=== PATIENT | male | born 1975 | race African-American/Black ===

== ENCOUNTER 2017-07-05 02:04 | Emergency (ER) | payer SELFPAY ==
--- NOTE | 2017-07-05 02:14 | PDOC ---
History of Present Illness - History of Present Illness Initial Comments: 41 year old male with PMH of remote heroin use, cocaine abuse, and EtOH use presenting with nausea, vomiting, abdominal pain, and chest pain for the past few hours. States that he started to have a "strange feeling in my stomach" after work around 22:00 and then began to vomit at home. Afte 3-4 episodes of vomiting he began to experience abdominal pain and chest pain. States he used cocaine two days prior but denies any other drug use. Denies fevers, chills, diarrhea, constipation, or other symptoms. 07/05/17 02:24 <Michelle Wang - Last Filed: 07/05/17 05:51> <Vance Meza - Last Filed: 07/05/17 08:14> - General Stated Complaint: VOMITING Time Seen by Provider: 07/05/17 02:14 Past History - Suicide/Smoking/Psychosocial Hx Smoking History: Current some day smoker Have you smoked in the past 12 months: No Number of Cigarettes Smoked Daily: 5 Hx Alcohol Use: Yes (2 BEERS) Drug/Substance Use Hx: Yes (COCAINE) Substance Use Type: None <Michelle Wang - Last Filed: 07/05/17 05:51> <Vance Meza - Last Filed: 07/05/17 08:14> - Past Medical History Allergies/Adverse Reactions: Allergies Allergy/AdvReac Type Severity Reaction Status Date / Time shellfish derived Allergy Verified 07/05/17 02:24 Home Medications: Ambulatory Orders Methadone [Dolophine -] 105 mg PO DAILY 01/27/14 Review of Systems - Review of Systems Constitutional: No: Chills, Diaphoresis, Fever HEENTM: No: Blurred Vision, Recent change in vision, Double Vision Respiratory: No: Cough, Orthopnea, Shortness of Breath Cardiac (ROS): No: Chest Pain ABD/GI: Yes: Nausea, Poor Appetite. No: Constipated, Diarrhea : No: Dysuria, Discharge, Frequency Musculoskeletal: No: Joint Pain, Joint Swelling Integumentary: No: Bruising, Lesions, Lumps, Pallor Neurological: No: Headache, Numbness Psychiatric: Yes: Other (substance abuse) <Michelle Wang - Last Filed: 07/05/17 05:51> *Physical Exam - Physical Exam General Appearance: Yes: Nourished, Appropriately Dressed, Apparent Distress, Moderate Distress HEENT: positive: EOMI, ARNEL, Normal ENT Inspection, Normal Voice Neck: positive: Trachea midline, Normal Thyroid, Supple. negative: Tender, Rigid Respiratory/Chest: positive: Lungs Clear, Normal Breath Sounds. negative: Chest Tender, Respiratory Distress Cardiovascular: positive: Regular Rhythm, Regular Rate Gastrointestinal/Abdominal: positive: Normal Bowel Sounds, Tender (Diffusely tender but eventually localizd to periumbilical region), Soft, Distended. negative: Flat Musculoskeletal: positive: Normal Inspection. negative: CVA Tenderness Extremity: positive: Normal Capillary Refill, Normal Inspection, Normal Range of Motion. 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 NML intact, Fully Oriented, Alert, Normal Mood/ Affect, Normal Response, Motor Strength 5/5 <Michelle Wang - Last Filed: 07/05/17 05:51> - Vital Signs Last Vital Signs Temp Pulse Resp BP Pulse Ox 98.4 F 76 14 140/76 96 07/05/17 06:52 07/05/17 06:52 07/05/17 06:52 07/05/17 06:52 07/05/17 06:52 <Vance Meza - Last Filed: 07/05/17 08:14> ED Treatment Course - LABORATORY CBC & Chemistry Diagram: 07/05/17 02:45 07/05/17 02:45 <Michelle Wang - Last Filed: 07/05/17 05:51> - LABORATORY CBC & Chemistry Diagram: 07/05/17 02:45 07/05/17 02:45 - ADDITIONAL ORDERS Additional order review: Laboratory Results 07/05/17 07/05/17 07/05/17 05:21 03:35 03:35 VBG pH POC VBG pCO2 POC VBG pO2 Mixed VBG HCO3 Sodium Potassium Chloride Carbon Dioxide Anion Gap BUN Creatinine Creat Clearance w eGFR Random Glucose Lactic Acid Calcium Total Bilirubin Direct Bilirubin AST ALT Alkaline Phosphatase Creatine Kinase Troponin I Total Protein Albumin Lipase 54 L Urine Color Yellow Urine Appearance Clear Urine pH 7.0 Ur Specific [place] 1.016 Urine Protein 1+ H Urine Glucose (UA) Negative Urine Ketones Negative Urine Blood Negative Urine Nitrite Negative Urine Bilirubin Negative Urine Urobilinogen Negative Ur Leukocyte Esterase Trace Urine WBC (Auto) 1 Urine RBC (Auto) <1 Ur Epithelial Cells Rare Hyaline Casts 17 Opiates Screen Negative Methadone Screen Positive Barbiturate Screen Negative Phencyclidine Screen Negative Ur Amphetamines Screen Negative MDMA (Ecstasy) Screen Negative Benzodiazepines Screen Negative Cocaine Screen Positive U Marijuana (THC) Screen Negative 07/05/17 07/05/17 07/05/17 02:56 02:45 02:45 VBG pH 7.36 POC VBG pCO2 51.3 POC VBG pO2 40.2 Mixed VBG HCO3 28.5 H Sodium 140 Potassium 3.9 Chloride 103 Carbon Dioxide 29 Anion Gap 8 BUN 8 D Creatinine 0.9 D Creat Clearance w eGFR > 60 Random Glucose 121 H D Lactic Acid 2.9 H* Calcium 9.2 Total Bilirubin 0.4 D Direct Bilirubin < 0.2 AST 35 D ALT 59 D Alkaline Phosphatase 136 H Creatine Kinase 222 Troponin I < 0.02 Total Protein 8.1 Albumin 3.9 Lipase Urine Color Urine Appearance Urine pH Ur Specific [place] Urine Protein Urine Glucose (UA) Urine Ketones Urine Blood Urine Nitrite Urine Bilirubin Urine Urobilinogen Ur Leukocyte Esterase Urine WBC (Auto) Urine RBC (Auto) Ur Epithelial Cells Hyaline Casts Opiates Screen Methadone Screen Barbiturate Screen Phencyclidine Screen Ur Amphetamines Screen MDMA (Ecstasy) Screen Benzodiazepines Screen Cocaine Screen U Marijuana (THC) Screen 07/05/17 02:45 RBC 4.59 MCV 86.2 MCHC 34.5 RDW 13.8 MPV 8.5 Neutrophils % 69.7 Lymphocytes % 20.8 D Monocytes % 7.9 Eosinophils % 1.1 Basophils % 0.5 - Medications Given in the ED: ED Medications Discontinued Medications Generic Name Dose Route Start Last Admin Trade Name Freq PRN Reason Stop Dose Admin Al Hydroxide/Mg Hydroxide 30 ml 07/05/17 02:18 07/05/17 02:48 Mylanta Oral Suspension - PO 07/05/17 02:19 30 ml ONCE ONE Administration Sodium Chloride 1,000 mls @ 1,000 mls/hr 07/05/17 03:36 07/05/17 03:42 Normal Saline - IV 07/05/17 04:35 1,000 mls/hr ASDIR STA Administration Ketorolac Tromethamine 30 mg 07/05/17 05:47 07/05/17 05:49 Toradol Injection - IVPUSH 07/05/17 05:48 30 mg ONCE ONE Administration Ondansetron HCl 4 mg 07/05/17 02:18 07/05/17 02:50 Zofran Injection IVPUSH 07/05/17 02:19 4 mg ONCE ONE Administration Sodium Chloride 1,000 ml 07/05/17 02:18 07/05/17 02:50 Normal Saline - IV 07/05/17 02:19 1,000 ml ONCE ONE Administration <Vance Meza - Last Filed: 07/05/17 08:14> Medical Decision Making - Medical Decision Making 41 year old male with PMH of substance abuse, currently on methadone presenting with sudden onset vomiting that eventually led to abdominal pain. Vitals stable throughout course and afebrile. Small WBC elevation with lactate elevation to 2.9 which could be explained by vomiting/ recent cocaine use. CT scan negative for pathology and patient's abdominal pain improved with Maalox and Zofran. He remained galo free for three hours then awoke complaining of pain again so he was given Toradol 30 IV which caused completely 07/05/17 05:58 <Michelle Wang - Last Filed: 07/05/17 05:51> *DC/Admit/Observation/Transfer <Michelle Wang - Last Filed: 07/05/17 05:51> - Discharge Dispostion Admit: No <Vance Meza - Last Filed: 07/05/17 08:14> Diagnosis at time of Disposition: Nausea, Hepatic steatosis Abdominal pain Qualifiers: Abdominal location: unspecified location Qualified Code(s): R10.9 - Unspecified abdominal pain Inguinal hernia Qualifiers: Obstruction and gangrene presence: without obstruction or gangrene Laterality: unspecified laterality Recurrence: not specified as recurrent Qualified Code(s) : K40.90 - Unilateral inguinal hernia, without obstruction or gangrene, not specified as recurrent - Discharge Dispostion Disposition: HOME Condition at time of disposition: Good - Referrals Referrals: Bertram Barrera MD [Staff Physician] - - Patient Instructions Printed Discharge Instructions: DI for Abdominal Pain-Adult Additional Instructions: Please return to the ER if you experience concerning or worsening symptoms including worsening abdominal pain, vomiting, or fevers. Please keep your diet limited to Banana, Apple Sauce, and [place] for the next few days to help manage your symptoms. It is important that you call to schedule a follow up appointment with your primary care provider within 2-3 days to discuss your ER visit and further management of your symptoms.
[2017-07-05] MEDS ORDERED: MAG HYDROX/AL HYDROX/SIMETH 30 ML UNIT-DOSE CUP PO ONE (02:18)
[2017-07-05] MEDS ORDERED: ONDANSETRON 4 MG/2 ML VIAL IVPUSH ONE (02:18)
[2017-07-05] MEDS ORDERED: SODIUM CHLORIDE 0.9% 500 ML INFUS.BAG IV ONE (02:18)
[2017-07-05 02:24] VITALS: BMI 37.5
--- NOTE | 2017-07-05 02:39 | PDOC ---
Attending Attestation - Resident Resident Name: Michelle Wang - ED Attending Attestation I have performed the following: I have examined & evaluated the patient, The case was reviewed & discussed with the resident, I agree w/resident's findings & plan - HPI HPI: 07/05/17 02:39 Pt comes with vomiting after cocaine use. - Physicial Exam PE: 07/05/17 02:39 Agree with resident exam - Medical Decision Making 07/05/17 05:50 Pt comes with vomiting and feeling unwell. He receives methadone and uses cocaine. Pt has no fever or chills. States that he has abd pain. No dysuria. Pt has a CT scan that shows fatty liver and fat in his hernias. Normal appy and rest of CT is normal. Pt will be discharged home. 07/05/17 06:16 Patient Name: PHILIP MAE THIS IS A PRELIMINARY REPORT FROM [facility] DATE OF SERVICE: 2017-07-05 04:54:57 IMAGES: [id number] EXAM: CT abdomen and pelvis with contrast HISTORY: Rule out appendicitis COMPARISON: None FINDINGS: Basilar dependent atelectasis is noted. The visualized cardiac chambers are normal size and configuration. The liver is fatty. Normal gallbladder, pancreas, spleen , adrenal glands and kidneys. The stomach and abdominal small and large bowel are normal. There is no aortic aneurysm. There is no significant retroperitoneal lymphadenopathy. The pelvic small and large bowel are normal. The appendix is normal. The urinary bladder and prostate gland are normal. No pelvic free fluid is identified. There is no significant pelvic lymphadenopathy. Small fat containing bilateral inguinal hernias noted. IMPRESSION: Fatty liver. No evidence of acute pathology. THIS DOCUMENT HAS BEEN ELECTRONICALLY SIGNED 07/05/17 06:39 Pt hydrated. Labs normal except for elevated lactate. We will repeat and if normal or decreasing he will go home.
[2017-07-05] MEDS ORDERED: MAG HYDROX/AL HYDROX/SIMETH 30 ML UNIT-DOSE CUP ONE (02:48)
[2017-07-05 02:59] LABS: BASO % 0.5 % (0-2.0); EOS % 1.1 % (0-4.5); HEMATOCRIT 39.6 % (35.4-49); HEMOGLOBIN 13.6 GM/dL (11.7-16.9); LYMPH % 20.8 % (8-40); MCH 29.7 pg (25.7-33.7); MCHC 34.5 g/dl (32.0-35.9); MEAN CELL VOLUME 86.2 fl (80-96); MEAN PLT VOLUME 8.5 fl (7.5-11.1); MONO % 7.9 % (3.8-10.2); NEUT % 69.7 % (42.8-82.8); PLATELET COUNT 265 K/MM3 (134-434); RBC 4.59 M/mm3 (4.00-5.60); RDW 13.8 % (11.9-15.9); WHITE BLOOD COUNT 12.6 K/mm3 (4.0-10.0)
[2017-07-05 03:26] LABS: ALBUMIN 3.9 g/dl (3.4-5.0); ANION GAP 8 (8-16); BILIRUBIN,DIRECT < 0.2 mg/dL (0.0-0.2); BILIRUBIN,TOTAL 0.4 mg/dL (0.2-1.0); BLOOD UREA NITROGEN 8 mg/dL (7-18); CALCIUM 9.2 mg/dL (8.5-10.1); CHLORIDE 103 mmol/L (98-107); CO2 29 mmol/L (21-32); CREATININE 0.9 mg/dL (0.7-1.3); GLUCOSE,RANDOM 121 mg/dL (74-106); POTASSIUM 3.9 mmol/L (3.5-5.1); SGOT/AST 35 U/L (15-37); SGPT/ALT 59 U/L (12-78); SODIUM 140 mmol/L (136-145); TOT PROT 8.1 g/dl (6.4-8.2)
[2017-07-05] MEDS ORDERED: SODIUM CHLORIDE 1,000 ML IV STA (03:36)
[2017-07-05 03:40] LABS: VENOUS PC02 51.3 mmHg (38-52); VENOUS PH 7.36 (7.32-7.42)
[2017-07-05 03:40] LABS: ALK PHOS 136 U/L (45-117)
[2017-07-05 03:41] LABS: VENOUS PO2 40.2 mmHg (28-48)
[2017-07-05 03:53] LABS: URINE APPEARANCE CLEAR; URINE BILIRUBIN NEGATIVE (<2.0 mg/dL); URINE COLOR YELLOW; URINE GLUCOSE (UA) NEGATIVE (NEGATIVE); URINE KETONE NEGATIVE (NEGATIVE); URINE LEUK ESTERASE TRACE (NEGATIVE); URINE NITRITE NEGATIVE (NEGATIVE); URINE UROBILINOGEN NEGATIVE mg/dL (0.2-1.0)
[2017-07-05 03:57] LABS: URINE PROTEIN 1+ (NEGATIVE)
[2017-07-05 03:59] LABS: EPI CELLS RARE /HPF (FEW); URINE HYALINE CAST 17 /lpf
[2017-07-05 04:12] LABS: OPIATES, URI NEGATIVE ng/ml (CUTOFF=300); PHENCYCLIDINE,URINE NEGATIVE ng/ml (CUTOFF=25); URINE AMPHETAMINES NEGATIVE ng/ml (CUTOFF=500); URINE BARBITURATES NEGATIVE ng/ml (CUTOFF=200); URINE BENZODIAZEPINES NEGATIVE ng/ml (CUTOFF=200)
[2017-07-05 04:13] LABS: COCAINE, UR POSITIVE ng/ml (CUTOFF=300); METHADONE, UR POSITIVE ng/ml (CUTOFF=300)
[2017-07-05] MEDS ORDERED: KETOROLAC TROMETHAMINE 30 MG/1 ML VIAL IVPUSH ONE (05:47)
[2017-07-05] MEDS ORDERED: KETOROLAC TROMETHAMINE 30 MG/1 ML VIAL ONE (06:02)
--- NOTE | 2017-07-05 08:14 | PDOC ---
*Physical Exam - Vital Signs Last Vital Signs Temp Pulse Resp BP Pulse Ox 98.4 F 76 14 140/76 97 07/05/17 06:52 07/05/17 06:52 07/05/17 06:52 07/05/17 06:52 07/05/17 07:52 - Physical Exam Comments: 07/05/17 08:11 Gen: aaox3, nad heart: +s1s2 reg Lungs: cta b/l Abd: soft, nt/nd +bs ext: no c/c/e ED Treatment Course - LABORATORY CBC & Chemistry Diagram: 07/05/17 02:45 07/05/17 02:45 - ADDITIONAL ORDERS Additional order review: Laboratory Results 07/05/17 07/05/17 07/05/17 06:03 05:21 03:35 VBG pH POC VBG pCO2 POC VBG pO2 Mixed VBG HCO3 Sodium Potassium Chloride Carbon Dioxide Anion Gap BUN Creatinine Creat Clearance w eGFR Random Glucose Lactic Acid 1.3 Calcium Total Bilirubin Direct Bilirubin AST ALT Alkaline Phosphatase Creatine Kinase Troponin I Total Protein Albumin Lipase 54 L Urine Color Urine Appearance Urine pH Ur Specific [place] Urine Protein Urine Glucose (UA) Urine Ketones Urine Blood Urine Nitrite Urine Bilirubin Urine Urobilinogen Ur Leukocyte Esterase Urine WBC (Auto) Urine RBC (Auto) Ur Epithelial Cells Hyaline Casts Opiates Screen Negative Methadone Screen Positive Barbiturate Screen Negative Phencyclidine Screen Negative Ur Amphetamines Screen Negative MDMA (Ecstasy) Screen Negative Benzodiazepines Screen Negative Cocaine Screen Positive U Marijuana (THC) Screen Negative 07/05/17 07/05/17 07/05/17 03:35 02:56 02:45 VBG pH 7.36 POC VBG pCO2 51.3 POC VBG pO2 40.2 Mixed VBG HCO3 28.5 H Sodium Potassium Chloride Carbon Dioxide Anion Gap BUN Creatinine Creat Clearance w eGFR Random Glucose Lactic Acid 2.9 H* Calcium Total Bilirubin Direct Bilirubin AST ALT Alkaline Phosphatase Creatine Kinase Troponin I Total Protein Albumin Lipase Urine Color Yellow Urine Appearance Clear Urine pH 7.0 Ur Specific [place] 1.016 Urine Protein 1+ H Urine Glucose (UA) Negative Urine Ketones Negative Urine Blood Negative Urine Nitrite Negative Urine Bilirubin Negative Urine Urobilinogen Negative Ur Leukocyte Esterase Trace Urine WBC (Auto) 1 Urine RBC (Auto) <1 Ur Epithelial Cells Rare Hyaline Casts 17 Opiates Screen Methadone Screen Barbiturate Screen Phencyclidine Screen Ur Amphetamines Screen MDMA (Ecstasy) Screen Benzodiazepines Screen Cocaine Screen U Marijuana (THC) Screen 07/05/17 02:45 VBG pH POC VBG pCO2 POC VBG pO2 Mixed VBG HCO3 Sodium 140 Potassium 3.9 Chloride 103 Carbon Dioxide 29 Anion Gap 8 BUN 8 D Creatinine 0.9 D Creat Clearance w eGFR > 60 Random Glucose 121 H D Lactic Acid Calcium 9.2 Total Bilirubin 0.4 D Direct Bilirubin < 0.2 AST 35 D ALT 59 D Alkaline Phosphatase 136 H Creatine Kinase 222 Troponin I < 0.02 Total Protein 8.1 Albumin 3.9 Lipase Urine Color Urine Appearance Urine pH Ur Specific [place] Urine Protein Urine Glucose (UA) Urine Ketones Urine Blood Urine Nitrite Urine Bilirubin Urine Urobilinogen Ur Leukocyte Esterase Urine WBC (Auto) Urine RBC (Auto) Ur Epithelial Cells Hyaline Casts Opiates Screen Methadone Screen Barbiturate Screen Phencyclidine Screen Ur Amphetamines Screen MDMA (Ecstasy) Screen Benzodiazepines Screen Cocaine Screen U Marijuana (THC) Screen 07/05/17 02:45 RBC 4.59 MCV 86.2 MCHC 34.5 RDW 13.8 MPV 8.5 Neutrophils % 69.7 Lymphocytes % 20.8 D Monocytes % 7.9 Eosinophils % 1.1 Basophils % 0.5 - Medications Given in the ED: ED Medications Discontinued Medications Generic Name Dose Route Start Last Admin Trade Name Yazmin PRN Reason Stop Dose Admin Al Hydroxide/Mg Hydroxide 30 ml 07/05/17 02:18 07/05/17 02:48 Mylanta Oral Suspension - PO 07/05/17 02:19 30 ml ONCE ONE Administration Sodium Chloride 1,000 mls @ 1,000 mls/hr 07/05/17 03:36 07/05/17 03:42 Normal Saline - IV 07/05/17 04:35 1,000 mls/hr ASDIR STA Administration Ketorolac Tromethamine 30 mg 07/05/17 05:47 07/05/17 05:49 Toradol Injection - IVPUSH 07/05/17 05:48 30 mg ONCE ONE Administration Ondansetron HCl 4 mg 07/05/17 02:18 07/05/17 02:50 Zofran Injection IVPUSH 07/05/17 02:19 4 mg ONCE ONE Administration Sodium Chloride 1,000 ml 07/05/17 02:18 07/05/17 02:50 Normal Saline - IV 07/05/17 02:19 1,000 ml ONCE ONE Administration Medical Decision Making - Medical Decision Making 07/05/17 08:11 a/p: Pt signed out by the prior ED physician pending repeat lactate -pt had acute onset of n/v/d last night after bringing salmon home from work. States he did not eat the salmon. No one else is sick at home. Pt states abd pain, n/v/d has resolved. Pt has tolerated PO in the ED. Pt denies complaints at this time and is requesting to go home. Pt states he needs to go to his methadone clinic. Pt with mildly elevated WBC without a shift - most likely stress reaction. Repeat lactate improved. CT shows fatty liver, b/l fat containing inguinal hernias b/l. Pt stable for d/c to home. Discussed all reasons to return to the ED and need for follow up. Discussed clear liquid diet and BRAT diet. Answered all questions *DC/Admit/Observation/Transfer Diagnosis at time of Disposition: Nausea Abdominal pain Qualifiers: Abdominal location: unspecified location Qualified Code(s): R10.9 - Unspecified abdominal pain - Discharge Dispostion Disposition: HOME Condition at time of disposition: Good - Referrals - Patient Instructions Printed Discharge Instructions: DI for Abdominal Pain-Adult Additional Instructions: Please return to the ER if you experience concerning or worsening symptoms including worsening abdominal pain, vomiting, or fevers. Your CT scan was unremarkable here in the ER. It is important that you call to schedule a follow up appointment with your primary care provider within 2-3 days to discuss your ER visit and further management of your symptoms. - Post Discharge Activity
[2017-07-05 08:24] VITALS: BP 140/79; PULSE 81; TEMP 98.1
--- NOTE | 2017-07-05 14:30 | EKG ---
Test Reason : Blood Pressure : / mmHG Vent. Rate : 075 BPM Atrial Rate : 075 BPM P-R Int : 174 ms QRS Dur : 082 ms QT Int : 384 ms P-R-T Axes : 055 021 -09 degrees QTc Int : 428 ms NORMAL SINUS RHYTHM NONSPECIFIC T WAVE ABNORMALITY ABNORMAL ECG WHEN COMPARED WITH ECG OF 16-AUG-2014 05:13, NO SIGNIFICANT CHANGE WAS FOUND Confirmed by MD Barba Daniel ([id number]) on 07/05/2017 2:30:10 PM Referred By: Confirmed By:Vance Barba MD
== END 2017-07-05 08:23 | disposition home or self-care (01) ==
LOC: JER 02:04
PROC: 3E0337Z Introduction of Electrolytic and Water Balance Substance into Peripheral Vein, Percutaneous Approach (ICD-10-PCS; principal; 2017-07-05)
PROC: 3E033GC Introduction of Other Therapeutic Substance into Peripheral Vein, Percutaneous Approach (ICD-10-PCS; 2017-07-05)
PROC: 3E0333Z Introduction of Anti-inflammatory into Peripheral Vein, Percutaneous Approach (ICD-10-PCS; 2017-07-05)
DX: K40.20 Bilateral inguinal hernia, without obstruction or gangrene, not specified as recurrent (principal); K76.0 Fatty (change of) liver, not elsewhere classified; F14.10 Cocaine abuse, uncomplicated; F11.20 Opioid dependence, uncomplicated
CPT/HCPCS: 36415; 71045-TC-FY; 74177-TC; 80053; 80307; 81003; 81015; 82248; 82550; 82553; 82803; 83605; 83690; 84484; 85025; 93005; 93010; 99284-25; J7030

== ENCOUNTER 2018-01-06 21:36 | Emergency (ER) | payer OTHER ==
[2018-01-06 21:49] VITALS: BMI 34.0
[2018-01-06] MEDS ORDERED: ONDANSETRON 4 MG/2 ML VIAL IVPUSH ONE (22:34)
[2018-01-06] MEDS ORDERED: SODIUM CHLORIDE 1,000 ML IV STA (22:34)
[2018-01-06 23:07] LABS: BASO % 0.4 % (0-2.0); EOS % 0.4 % (0-4.5); HEMATOCRIT 40.3 % (35.4-49); HEMOGLOBIN 13.6 GM/dL (11.7-16.9); LYMPH % 10.7 % (8-40); MCH 29.2 pg (25.7-33.7); MCHC 33.6 g/dl (32.0-35.9); MEAN CELL VOLUME 86.7 fl (80-96); MEAN PLT VOLUME 8.4 fl (7.5-11.1); MONO % 4.3 % (3.8-10.2); NEUT % 84.2 % (42.8-82.8); PLATELET COUNT 286 K/MM3 (134-434); RBC 4.65 M/mm3 (4.00-5.60); WHITE BLOOD COUNT 13.3 K/mm3 (4.0-10.0)
[2018-01-06] MEDS ORDERED: ONDANSETRON 4 MG/2 ML VIAL ONE (23:12)
[2018-01-06 23:30] LABS: ALBUMIN 4.3 g/dl (3.4-5.0); ALK PHOS 139 U/L (45-117); ANION GAP 9 MMOL/L (8-16); BILIRUBIN,TOTAL 0.4 mg/dL (0.2-1); BLOOD UREA NITROGEN 10 mg/dL (7-18); CALCIUM 9.5 mg/dL (8.5-10.1); CHLORIDE 100 mmol/L (98-107); CO2 29 mmol/L (21-32); CREATININE 0.8 mg/dL (0.55-1.3); GLUCOSE,RANDOM 99 mg/dL (74-106); LIPASE 80 U/L (73-393); POTASSIUM 4.4 mmol/L (3.5-5.1); SGOT/AST 50 U/L (15-37); SGPT/ALT 69 U/L (13-61); SODIUM 138 mmol/L (136-145); TOT PROT 8.8 g/dl (6.4-8.2)
[2018-01-06] MEDS ORDERED: FAMOTIDINE 20 MG/50 ML IVPB 20 MG/50 ML MG IVPB ONE ×2 (23:36→23:42)
--- NOTE | 2018-01-07 01:15 | PDOC ---
History of Present Illness - General Chief Complaint: Nausea/Vomiting Stated Complaint: NAUSEA/VOMITING Time Seen by Provider: 01/06/18 22:14 History Source: Patient Exam Limitations: No Limitations - History of Present Illness Travel History: No Initial Comments: 42 y/o M hx of remote heroin use (has not used in years), cocaine abuse (last used 1 week ago), currently on methadone presents with sudden onset of NBNB emesis and dull epigastric pain that started today after he came from work. Patient denies eating any possible bad food. Patient was seen on 07/05/17 for similar symptoms during which he received Pepcid, Zofran, Maalox, Toradol; he also had CT abd/pelvis done with no acute findings. Denies fever, chills, sob, cp, diarrhea, black/bloody stools, urinary complaints. He is having normal bowel movements. Patient endorses drinking 1 beer occasionally but denies heavy alcohol intake. Patient with no hx of abdominal surgeries. 01/07/18 01:10 Past History - Past Medical History Allergies/Adverse Reactions: Allergies Allergy/AdvReac Type Severity Reaction Status Date / Time shellfish derived Allergy Verified 01/06/18 21:49 Home Medications: Ambulatory Orders Methadone [Dolophine -] 105 mg PO DAILY 01/27/14 Naproxen Sodium [Aleve] 220 mg PO BID PRN 01/07/18 Ondansetron [Zofran Odt -] 4 mg SL BID PRN #14 od.tablet 01/07/18 COPD: No - Suicide/Smoking/Psychosocial Hx Smoking History: Current some day smoker Have you smoked in the past 12 months: No Number of Cigarettes Smoked Daily: 10 Information on smoking cessation initiated: No Hx Alcohol Use: Yes (2 BEERS) Drug/Substance Use Hx: Yes (COCAINE) Substance Use Type: None Abd/GI Specific PMHX - Complaint Specific PMHX Colitis: No Diverticulitis: No Gall Bladder Disease: No GERD: No Hepatitis: No Irritable Bowel Synd (IBS): No Pancreatitis: No GI Ulcer Disease: No Review of Systems - Review of Systems Comments:: See HPI 01/07/18 01:14 *Physical Exam - Vital Signs Last Vital Signs Temp Pulse Resp BP Pulse Ox 97.9 F 77 20 141/91 97 01/06/18 23:00 01/06/18 23:00 01/06/18 23:00 01/06/18 23:00 01/06/18 23:00 - Physical Exam General Appearance: Yes: Mild Distress Respiratory/Chest: positive: Lungs Clear, Normal Breath Sounds. negative: Respiratory Distress, Accessory Muscle Use, Labored Respiration Cardiovascular: positive: Regular Rhythm, Regular Rate, S1, S2 Gastrointestinal/Abdominal: positive: Normal Bowel Sounds, Tender (Mild TTP along epigastric region; negative Camargo's sign). negative: Pulsatile Mass, Decreased BS, Distended, Guarding, Rebound, Hernia, Mass Musculoskeletal: negative: CVA Tenderness Neurologic: positive: Fully Oriented, Alert, Normal Mood/Affect Heart Score/ECG Review - History History: Slightly suspicious - Electrocardiogram EKG: Non specific repolarization disturbance - Age Age: </= 45 - Risk Factors Risk Factors Heart Score: Yes Hx Obesity Based on the list above the patient has:: 1-2 risk factors - Troponin Troponin: </= normal limit - Score Heart Score - Total: 2 #1 EKG shows NSR with nonspecific T wave inversions seen in lateral leads (V4-V6); they were seen in prior EKG as well. 01/07/18 01:18 ED Treatment Course - LABORATORY CBC & Chemistry Diagram: 01/06/18 22:50 01/06/18 22:50 - ADDITIONAL ORDERS Additional order review: Laboratory Results 01/06/18 01/06/18 23:00 22:50 Sodium 138 Potassium 4.4 Chloride 100 Carbon Dioxide 29 Anion Gap 9 BUN 10 Creatinine 0.8 Creat Clearance w eGFR > 60 Random Glucose 99 Calcium 9.5 Total Bilirubin 0.4 AST 50 H ALT 69 H Alkaline Phosphatase 139 H Troponin I < 0.02 Total Protein 8.8 H Albumin 4.3 Lipase 80 01/06/18 22:50 RBC 4.65 MCV 86.7 MCHC 33.6 RDW 14.0 MPV 8.4 Neutrophils % 84.2 H D Lymphocytes % 10.7 D Monocytes % 4.3 Eosinophils % 0.4 Basophils % 0.4 - Medications Given in the ED: ED Medications Discontinued Medications Generic Name Dose Route Start Last Admin Trade Name Freq PRN Reason Stop Dose Admin Sodium Chloride 1,000 mls @ 1,000 mls/hr 01/06/18 22:34 01/06/18 23:25 Normal Saline - IV 01/06/18 23:33 1,000 mls/hr ASDIR STA Administration Famotidine/Sodium Chloride 20 mg in 50 mls @ 100 mls/hr 01/06/18 23:36 23:43 Pepcid 20 Mg Premixed Ivpb - IVPB 01/07/18 00:05 100 mls/hr ONCE ONE Administration Ondansetron HCl 4 mg 01/06/18 22:34 01/06/18 23:20 Zofran Injection IVPUSH 01/06/18 22:35 4 mg ONCE ONE Administration Medical Decision Making - Medical Decision Making 42 y/o M presents with epigastric pain and NBNB emesis. Patient's labs unremarkable other than mildly elevated WBC (likely due to episodes of emesis), slightly elevated LFTs (also elevated in past), lipase normal. Patient's symptoms improved after being given IVF, Zofran and Pepcid. Also unlikely ACS given trop neg and EKG unchanged; patient's heart score is 2. Opiate withdrawal unlikely as well as patient still taking his Methadone daily. Likely symptoms could be due to gastritis. 01/07/18 01:16 Repeat vitals BP 141/91 P 79 T 97.9 Pulse ox 97% When patient was reassessed, he was feeling a lot better and passed PO challenge. Rx for Zofran sent to pharmacy Patient currently with no PCP but has insurance. States he will get a PCP to follow-up with Return precautions discussed with patient. Stable for discharge 01/07/18 01:27 *DC/Admit/Observation/Transfer Diagnosis at time of Disposition: Abdominal pain Qualifiers: Abdominal location: epigastric Qualified Code(s): R10.13 - Epigastric pain Vomiting Qualifiers: Vomiting type: unspecified Vomiting Intractability: non-intractable Nausea presence: with nausea Qualified Code(s): R11.2 - Nausea with vomiting, unspecified - Discharge Dispostion Disposition: HOME Condition at time of disposition: Improved Decision to Admit order: No - Prescriptions Prescriptions: Ondansetron [Zofran Odt -] 4 mg SL BID PRN #14 od.tablet PRN Reason: Nausea And/Or Vomiting - Referrals - Patient Instructions Printed Discharge Instructions: DI for Vomiting -- Adult, DI for Epigastric Pain Additional Instructions: Thank you for choosing [facility]. It was a pleasure taking care of you. Your symptoms could possibly be from gastritis (inflammation of lining of stomach) Avoid alcohol intake Recommend bland diet such as rice, bananas, applesauce, plain toast, plain yogurt until you are feeling better Refrain from eating oily/spicy foods. Drink plenty of water to stay hydrated Return to the Emergency Department if your symptoms worsen or persist, you have fever, shortness of breath, chest pain, severe abdominal pain, vomiting, vomiting blood, passing black or bloody stools, unable to drink water or tolerate any food or other concerning symptoms. - Post Discharge Activity Forms/Work/School Notes: Back to Work
[2018-01-07] MEDS ORDERED: ONDANSETRON 4 MG/2 ML VIAL IVPUSH ONE (01:27)
[2018-01-07 01:38] VITALS: BP 126/77; PULSE 70; TEMP 98
--- NOTE | 2018-01-07 04:23 | PDOC ---
*Physical Exam - Vital Signs Last Vital Signs Temp Pulse Resp BP Pulse Ox 98.0 F 70 20 126/77 96 01/07/18 01:37 01/07/18 01:37 01/07/18 01:37 01/07/18 01:37 01/07/18 01:37 ED Treatment Course - LABORATORY CBC & Chemistry Diagram: 01/06/18 22:50 01/06/18 22:50 - ADDITIONAL ORDERS Additional order review: Laboratory Results 01/06/18 01/06/18 23:00 22:50 Sodium 138 Potassium 4.4 Chloride 100 Carbon Dioxide 29 Anion Gap 9 BUN 10 Creatinine 0.8 Creat Clearance w eGFR > 60 Random Glucose 99 Calcium 9.5 Total Bilirubin 0.4 AST 50 H ALT 69 H Alkaline Phosphatase 139 H Troponin I < 0.02 Total Protein 8.8 H Albumin 4.3 Lipase 80 01/06/18 22:50 RBC 4.65 MCV 86.7 MCHC 33.6 RDW 14.0 MPV 8.4 Neutrophils % 84.2 H D Lymphocytes % 10.7 D Monocytes % 4.3 Eosinophils % 0.4 Basophils % 0.4 - Medications Given in the ED: ED Medications Discontinued Medications Generic Name Dose Route Start Last Admin Trade Name Freq PRN Reason Stop Dose Admin Sodium Chloride 1,000 mls @ 1,000 mls/hr 01/06/18 22:34 01/06/18 23:25 Normal Saline - IV 01/06/18 23:33 1,000 mls/hr ASDIR STA Administration Famotidine/Sodium Chloride 20 mg in 50 mls @ 100 mls/hr 01/06/18 23:36 23:43 Pepcid 20 Mg Premixed Ivpb - IVPB 01/07/18 00:05 100 mls/hr ONCE ONE Administration Ondansetron HCl 4 mg 01/06/18 22:34 01/06/18 23:20 Zofran Injection IVPUSH 01/06/18 22:35 4 mg ONCE ONE Administration Medical Decision Making - Medical Decision Making 01/07/18 04:23 Case discussed with Josie Hooper Patient presented with acute GI complaints, symptoms resolved with treatment dc with appropriate meds out patient followup *DC/Admit/Observation/Transfer Diagnosis at time of Disposition: Abdominal pain Qualifiers: Abdominal location: epigastric Qualified Code(s): R10.13 - Epigastric pain Vomiting Qualifiers: Vomiting type: unspecified Vomiting Intractability: non-intractable Nausea presence: with nausea Qualified Code(s): R11.2 - Nausea with vomiting, unspecified - Discharge Dispostion Disposition: HOME Condition at time of disposition: Improved - Prescriptions Prescriptions: Ondansetron [Zofran Odt -] 4 mg SL BID PRN #14 od.tablet PRN Reason: Nausea And/Or Vomiting - Referrals - Patient Instructions Printed Discharge Instructions: DI for Vomiting -- Adult, DI for Epigastric Pain Additional Instructions: Thank you for choosing [facility]. It was a pleasure taking care of you. Your symptoms could possibly be from gastritis (inflammation of lining of stomach) Avoid alcohol intake Recommend bland diet such as rice, bananas, applesauce, plain toast, plain yogurt until you are feeling better Refrain from eating oily/spicy foods. Drink plenty of water to stay hydrated Return to the Emergency Department if your symptoms worsen or persist, you have fever, shortness of breath, chest pain, severe abdominal pain, vomiting, vomiting blood, passing black or bloody stools, unable to drink water or tolerate any food or other concerning symptoms. - Post Discharge Activity Forms/Work/School Notes: Back to Work
--- NOTE | 2018-01-07 11:08 | EKG ---
Test Reason : Blood Pressure : / mmHG Vent. Rate : 095 BPM Atrial Rate : 095 BPM P-R Int : 158 ms QRS Dur : 086 ms QT Int : 346 ms P-R-T Axes : 056 017 -17 degrees QTc Int : 434 ms NORMAL SINUS RHYTHM POSSIBLE LEFT ATRIAL ENLARGEMENT LEFT VENTRICULAR HYPERTROPHY NONSPECIFIC T WAVE ABNORMALITY ABNORMAL ECG WHEN COMPARED WITH ECG OF 05-JUL-2017 02:06, NO SIGNIFICANT CHANGE WAS FOUND Confirmed by CHRISTIANO SCANLON, NÉSTOR ([id number]) on 01/07/2018 11:08:01 AM Referred By: Confirmed By:NÉSTOR ALVARADO MD
== END 2018-01-07 02:01 | disposition home or self-care (01) ==
LOC: JER 21:36
PROC: 3E0337Z Introduction of Electrolytic and Water Balance Substance into Peripheral Vein, Percutaneous Approach (ICD-10-PCS; principal; 2018-01-06)
PROC: 3E033GC Introduction of Other Therapeutic Substance into Peripheral Vein, Percutaneous Approach (ICD-10-PCS; 2018-01-06)
PROC: 3E033GC Introduction of Other Therapeutic Substance into Peripheral Vein, Percutaneous Approach (ICD-10-PCS; 2018-01-06)
DX: R10.13 Epigastric pain (principal); R11.2 Nausea with vomiting, unspecified; F11.20 Opioid dependence, uncomplicated; F14.10 Cocaine abuse, uncomplicated; F17.210 Nicotine dependence, cigarettes, uncomplicated; Z91.013 Allergy to seafood
CPT/HCPCS: 36415; 80053; 83690; 84484; 85025; 93005; 93010; 99284-25; J7030

== ENCOUNTER 2018-08-19 12:29 | Emergency (ER) | payer OTHER ==
[2018-08-19 13:03] VITALS: BP 124/79; PULSE 78; TEMP 98.2; BMI 32.6
[2018-08-19] MEDS ORDERED: IBUPROFEN 400 MG TABLET (FP) PO ONE ×2 (13:39→13:40)
--- NOTE | 2018-08-19 13:43 | PDOC ---
History of Present Illness - General Chief Complaint: Injury Stated Complaint: left ankle pain Time Seen by Provider: 08/19/18 13:33 History Source: Patient Exam Limitations: No Limitations (L ankle pain X 2yrs) - History of Present Illness Associated Symptoms: denies: fever/chills Past History - Travel Traveled outside of the country in the last 30 days: No Close contact w/someone who was outside of country & ill: No - Past Medical History Allergies/Adverse Reactions: Allergies Allergy/AdvReac Type Severity Reaction Status Date / Time shellfish derived Allergy Verified 08/19/18 13:03 Home Medications: Ambulatory Orders Methadone [Dolophine -] 105 mg PO DAILY 01/27/14 Naproxen Sodium [Aleve] 220 mg PO BID PRN 01/07/18 Ondansetron [Zofran Odt -] 4 mg SL BID PRN #14 od.tablet 01/07/18 Naproxen 375 mg PO BID 15 Days #30 tablet 08/19/18 COPD: No - Suicide/Smoking/Psychosocial Hx Smoking History: Never smoked Have you smoked in the past 12 months: No Number of Cigarettes Smoked Daily: 10 Information on smoking cessation initiated: No Hx Alcohol Use: No Drug/Substance Use Hx: No Substance Use Type: None Review of Systems - Review of Systems Is the patient limited Sami proficient: No Constitutional: No: Chills, Fever Musculoskeletal: Yes: Joint Pain (left ankle pain). No: Gout, Joint Swelling, Muscle Pain, Muscle Weakness, Joint Stiffness Neurological: No: Numbness, Tingling, Weakness, Unsteady Gait *Physical Exam - Vital Signs Last Vital Signs Temp Pulse Resp BP Pulse Ox 98.2 F 78 18 124/79 98 08/19/18 13:00 08/19/18 13:00 08/19/18 13:00 08/19/18 13:00 08/19/18 13:00 - Physical Exam General Appearance: Yes: Nourished Extremity: positive: Normal Capillary Refill, Normal Inspection, Normal Range of Motion, Other (+ tenderness in lateral/medial malleous, distal pulse intact, + vascular insufficiency changes in b/l leg, distal pulse intact, stable gait) Neurologic: positive: insole coverer II-XII NML intact, Fully Oriented, Alert, Normal Mood/ Affect, Normal Response, Motor Strength 07/04 ED Treatment Course - RADIOLOGY Radiology Studies Ordered: Category Date Time Status ANKLE-LEFT [RAD] Stat Radiology 08/19/18 13:38 Ordered Medical Decision Making - Medical Decision Making 08/19/18 13:42 43y/o M with left ankle pain X 2yrs, reports he fracture ankle 2yrs ago, he was splinted and removed splint prematurely he did not f/u with ortho as previously recommended he is here with intermittent pain in the left ankle no new injury xray no acute fx ortho referral given nsaids 08/19/18 17:11 *DC/Admit/Observation/Transfer Diagnosis at time of Disposition: Ankle pain, left Qualifiers: Chronicity: chronic Qualified Code(s): M25.572 - Pain in left ankle and joints of left foot - Discharge Dispostion Disposition: HOME Condition at time of disposition: Stable Decision to Admit order: No - Prescriptions Prescriptions: Naproxen 375 mg PO BID 15 Days #30 tablet - Referrals Referrals: Serjio Ag DO [Staff Physician] - - Patient Instructions Additional Instructions: Your preliminary ray was negative for acute fracture and dislocation you will be contacted if the report is different Please follow up orthopedic clinic for evaluation or if pain persist take medication as prescribed Return to the ER If worsening symptoms occurs. - Post Discharge Activity
== END 2018-08-19 15:40 | disposition home or self-care (01) ==
LOC: JERFT 12:29
DX: M25.572 Pain in left ankle and joints of left foot (principal); Z87.81 Personal history of (healed) traumatic fracture
CPT/HCPCS: 73610-TC-LT-FY; 99281-25

== ENCOUNTER 2019-03-27 09:37 | Inpatient (IN) | payer OTHER ==
--- NOTE | 2019-03-27 10:18 | PDOC ---
History of Present Illness - General Chief Complaint: Pain Stated Complaint: LT FOOT WOUND Time Seen by Provider: 03/27/19 10:03 - History of Present Illness Initial Comments: Simone Willis is a 43yo man with a PMH of HTN, substance abuse (heroin on methadone, cocaine, alcohol), chronic left ankle pain who prsesents with worsening ankle pain, now with bleeding and draining wounds. He states that he broke his ankle several years ago, but he removed his cast after the pain improved (2-3 weeks after the fracture) so that he could go back to work. Since then, he has had pain in the ankle with skin changes in the distal left leg along with wounds to both sides of the ankle. He reports that he got a powder from a friend who went to wound care, and that had cleared up the wounds for a while. Today, however, the pain was worse and he noticed bleeding and drainage from the wound sites. He reports that he has been in severe pain for a long time , and he has been using heroin for the pain despite being on methadone currently. He additionally reports subjective fever recently but denies any leg swelling, spreading erythema, malaise, night sweats, chest pain, palpitations, or other current symptoms. Past History - Past Medical History Allergies/Adverse Reactions: Allergies Allergy/AdvReac Type Severity Reaction Status Date / Time shellfish derived Allergy Verified 03/27/19 09:41 Home Medications: Ambulatory Orders Methadone [Dolophine -] 105 mg PO DAILY 01/27/14 COPD: No Other medical history: MMTP - Psycho Social/Smoking Cessation Hx Smoking History: Current some day smoker Have you smoked in the past 12 months: No Number of Cigarettes Smoked Daily: 10 Information on smoking cessation initiated: Yes Hx Alcohol Use: No Drug/Substance Use Hx: Yes Substance Use Type: None Review of Systems - Review of Systems Comments:: General: No fevers, no chills, no weight or appetite change, no malaise HEENT: No changes in vision, no changes in hearing, no congestion, no sore throat CV: No chest pain, no palpitations, no LE edema Pulm: No SOB, no cough, no wheezing GI: No nausea or vomiting, no change in bowel habits, no melena : No frequency, no urgency, no dysuria Musc: No back pain, no joint swelling, no recent injury. +L ankle pain Skin: See HPI Endo: No excessive thirst, no heat/cold intolerance Heme: No unusual bruising or bleeding, no swollen glands Neuro: No syncope, no numbness/tingling, no focal weakness Vasc: No claudication Psych: No recent change in mood, no SI or HI *Physical Exam - Vital Signs Last Vital Signs Temp Pulse Resp BP Pulse Ox 97.9 F 88 20 160/96 97 03/27/19 09:42 03/27/19 09:42 03/27/19 09:42 03/27/19 09:42 03/27/19 09:42 - Physical Exam General: Comfortable, no acute distress HEENT: Atraumatic, PERRL, EOMI, MMM, voice normal, normal neck ROM Cards: RRR, no murmur appreciated Pulm: Comfortable on room air, clear to auscultation bilaterally Abd: Soft, nontender, nondistended Ext: LLE with skin darkening c/w venous insufficiency, medial and lateral malleoli w/ wounds. Medial wound dry, covered in orange powder. Lateral 2-3mm open wound w/ small amount of purulent appearing drainage. L ankle diffusely TTP. No erythema or edema. RLE without wounds, skin changes, or tenderness. Skin: As above Neuro: A&Ox3, CN grossly intact, normal speech, motor/sensory grossly intact and symmetric Psych: Mood appropriate to situation ED Treatment Course - LABORATORY CBC & Chemistry Diagram: 03/27/19 10:00 03/27/19 10:00 Medical Decision Making - Medical Decision Making 03/27/19 10:18 Simone Willis is a 43yo man with a PMH of HTN, substance abuse (heroin on methadone, cocaine, alcohol), chronic left ankle pain following a fracture 2 years ago who presents with worsening ankle pain, now with bleeding and draining wounds on his bilateral malleoli. He endorses subjective fever recently. - Wounds appear infected, likely secondary to vascular compromise. May be due to prior injury w/o follow up or proper treatment - CBC, CMP, ESR, CRP, Xrays to eval for osteo - Coags, T&S in case surgical intervention is needed 03/27/19 11:46 - Labs reviewed. Leukocytosis to 12. Chemistry unremarkable. CRP slightly elevated at 1.4. ESR pending - Xrays to be completed 03/27/19 12:36 - Xrays completed, reviewed in the ED. Appears to have healed poorly after fracture. May have inflammatory changes at malleoli. Radiology report pending. - Plan to admit for additional management 03/27/19 13:50 - ESR also slightly elevated to 30 - Antibiotics ordered for wound infection. Vanc due to substance abuse (though pt denies IVDA), ancef for skin gely due to local resistance patterns - [employer] sent for admission Discussed with Dr Diana Evans PGY2 Discharge - Discharge Information Problems reviewed: Yes Clinical Impression/Diagnosis: Wound infection Ulcer of left lower extremity Qualifiers: Non-pressure ulcer stage: unspecified non-pressure ulcer stage Qualified Code(s ): L97.929 - Non-pressure chronic ulcer of unspecified part of left lower leg with unspecified severity Condition: Stable - Admission Yes - Follow up/Referral - Patient Discharge Instructions - Post Discharge Activity
--- NOTE | 2019-03-27 10:25 | PDOC ---
Attending Attestation - Resident Resident Name: MauriizooracioZuri - ED Attending Attestation I have performed the following: I have examined & evaluated the patient, The case was reviewed & discussed with the resident, I agree w/resident's findings & plan - HPI HPI: 03/27/19 11:01 43 y/o M hx of remote heroin use (has not used in years), cocaine abuse (last used 1 week ago), currently on methadone, ETOH abuse, HTN, chronic left ankle pain from prior fx, presenting with left ankle/foot ulcers and wounds, + bleeding and draining. There is prior ankle fracture from several years ago where he was immobilized in cast but he prematurely removed himself. Since then, he has had pain in the ankle with skin changes in the distal left leg. - Physicial Exam PE: 03/27/19 10:24 Agree with the resident's HPI and PE as documented in the electronic medical record. NAD, well appearing, EOMI, PERRL, nl conjunctiva, anicteric; neck supple. lungs clear, RRR, abdomen soft nontender. No rebound, no guarding. Back nontender. CUETO x4, no focal neuro deficits. No peripheral edema. normal color for ethnicity , WWP. - Medical Decision Making 03/27/19 10:24 Vital Signs Temp Pulse Resp BP Pulse Ox 97.9 F 88 20 160/96 97 03/27/19 09:42 03/27/19 09:42 03/27/19 09:42 03/27/19 09:42 03/27/19 09:42 ddx. osteomyelitis, ulcer, gangrene, infection, abscess VS reviewed, wnl nontoxic well appearing labs/esr/crp, xray imaging mild elevation for ESR/CRP wbc ct 12.6K xray of wound with degeneraive changes to left ankle, no new fx, no e/o osteomyelitis IV abx, ancef and vancomycin for ulcer/gangrenous changes analgesia inpatient wound/vascular consultation for further eval, poor wound healing and now appearing infectious. admission for wound care/infection, medical management 03/27/19 10:56 03/27/19 13:43 03/27/19 13:44 03/27/19 14:58 Heart Score/ECG Review #1 ECG reviewed & interpreted by me at: 10:45 General ECG Interpretation: Sinus Rhythm, Normal Rate, Normal Intervals Compared to previous ECG there are: No significant change 03/27/19 11:05 EKG normal sinus rhythm at 78 bpm, no interval abnormalities, narrow QRS, ST and T wave segments and morphology normal. Nonspecific T wave abnormalities with TWI in inferolateral leads
[2019-03-27 10:40] LABS: BASO % 0.8 % (0-2.0); EOS % 3.1 % (0-4.5); HEMATOCRIT 39.4 % (35.4-49); HEMOGLOBIN 13.1 GM/dL (11.7-16.9); MCH 28.8 pg (25.7-33.7); MCHC 33.2 g/dl (32.0-35.9); MEAN CELL VOLUME 86.7 fl (80-96); MEAN PLT VOLUME 8.5 fl (7.5-11.1); MONO % 6.4 % (3.8-10.2); NEUT % 71.7 % (42.8-82.8); PLATELET COUNT 296 K/MM3 (134-434); RBC 4.55 M/mm3 (4.00-5.60); RDW 14.2 % (11.9-15.9); WHITE BLOOD COUNT 12.6 K/mm3 (4.0-10.0)
[2019-03-27 10:56] LABS: INR 1.04 (0.83-1.09); PROTHROMBIN TIME (PATIENT) 12.3 SEC (9.7-13.0)
[2019-03-27 10:59] LABS: ACTIVATED PTT 37.9 SECONDS (25.2-36.5); ALBUMIN 3.6 g/dl (3.4-5.0); BILIRUBIN,TOTAL 0.4 mg/dL (0.2-1); BLOOD UREA NITROGEN 6.2 mg/dL (7-18); CALCIUM 9.5 mg/dL (8.5-10.1); CREATININE 0.7 mg/dL (0.55-1.3); TOT PROT 7.9 g/dl (6.4-8.2)
[2019-03-27 12:14] LABS: URINE APPEARANCE Clear; URINE BILIRUBIN Negative (NEGATIVE); URINE COLOR Yellow; URINE GLUCOSE (UA) Negative (NEGATIVE); URINE KETONE Negative (NEGATIVE); URINE LEUK ESTERASE Negative (NEGATIVE); URINE NITRITE Negative (NEGATIVE); URINE PROTEIN Trace (NEGATIVE); URINE UROBILINOGEN 0.2 mg/dL (0.2-1.0)
--- NOTE | 2019-03-27 12:18 | EKG ---
Test Reason : Blood Pressure : / mmHG Vent. Rate : 078 BPM Atrial Rate : 078 BPM P-R Int : 158 ms QRS Dur : 078 ms QT Int : 340 ms P-R-T Axes : 052 018 -16 degrees QTc Int : 387 ms NORMAL SINUS RHYTHM MINIMAL VOLTAGE CRITERIA FOR LVH, MAY BE NORMAL VARIANT NONSPECIFIC T WAVE ABNORMALITY ABNORMAL ECG WHEN COMPARED WITH ECG OF 06-JAN-2018 23:59, QT HAS SHORTENED Confirmed by JONNY SCANLON, BREANNA ([id number]) on 03/27/2019 12:18:40 PM Referred By: Confirmed By:BREANNA FULLER MD
[2019-03-27 12:37] LABS: ERYTHROCYTE SEDIMENTATION RATE 33 mm/hr (0-10)
[2019-03-27] MEDS ORDERED: VANCOMYCIN 1 GM in D5W (PRE-DOCKED) 1,000 MG/250 ML IVPB ONE (13:44)
[2019-03-27] MEDS ORDERED: CEFAZOLIN 1 GM in DEXTROSE 5%-WATER - 50 ML IVPB ONE (13:45)
[2019-03-27] MEDS ORDERED: CEFAZOLIN 1 GM/D5W 1 GM/50 ML BAG ONE (13:52)
[2019-03-27] MEDS ORDERED: VANCOMYCIN 1 GRAM (PRE-DOCKED) 1,000 MG/250 ML BAG IVPB ONE (13:52)
[2019-03-27] MEDS ORDERED: ACETAMINOPHEN INJECTION 100 ML IVPB ONE (13:59)
[2019-03-27] MEDS ORDERED: ACETAMINOPHEN 1000 MG/100 ML VIAL (NON FORMULARY) IVPB ONE ×2 (14:06→14:20)
[2019-03-27] MEDS ORDERED: cloNIDine HCL 0.1 MG TABLET PO PRN (14:16)
[2019-03-27] MEDS: THIAMINE HCL 100 MG TABLET (FP) PO SCH (14:34)
[2019-03-27] MEDS: FOLIC ACID 1 MG TABLET (FP) PO SCH (14:34)
--- NOTE | 2019-03-27 14:44 | HP ---
CHIEF COMPLAINT: left lower extremity leg ulcer PCP: Malcolm barlow HISTORY OF PRESENT ILLNESS: Patient is a 43 y/o male with a history of cocaine and heroin abuse on methadone who presents for left lower extremity ulcers. Patient has had these ulcers for two years. Two years ago he broke his ankle by falling, three weeks later when the cast was removed he developed the ulcers which have not healed. He has not been following with any physicians. Of note today he felt that his wounds were bleeding more then they typically do. He uses his neighbors cream today but it did not help the bleeding. He has pain at the sites which he describes a superficial. He has been taking Motrin 800 mg which he states helps the pain. Patient notes his legs are very dry. Patients denies fever, chills, nausea, vomiting, headache, or chest pain. ER course was notable for: (1)Vanc, Cephazolin (2) (3) Recent Travel: denies PAST MEDICAL HISTORY: cocaine and heroin use PAST SURGICAL HISTORY: R lower extremity skin stapled back together Social History: Smokin/2 pack a day Alcohol: occasionally Drugs: heroin and cocaine occasionally, denies IV use Allergies shellfish derived Allergy (Verified 03/27/19 09:41) HOME MEDICATIONS: Home Medications Medication Instructions Recorded Methadone [Dolophine -] 105 mg PO DAILY 01/27/14 REVIEW OF SYSTEMS CONSTITUTIONAL: Absent: fever, chills, diaphoresis, generalized weakness, malaise, loss of appetite, weight change HEENT: Absent: rhinorrhea, nasal congestion, throat pain, throat swelling, difficulty swallowing, mouth swelling, ear pain, eye pain, visual changes CARDIOVASCULAR: Absent: chest pain, syncope, palpitations, irregular heart rate, lightheadedness , peripheral edema RESPIRATORY: Absent: cough, shortness of breath, dyspnea with exertion, orthopnea, wheezing, stridor, hemoptysis GASTROINTESTINAL: Absent: abdominal pain, abdominal distension, nausea, vomiting, diarrhea, constipation, melena, hematochezia GENITOURINARY: Absent: dysuria, frequency, urgency, hesitancy, hematuria, flank pain, genital pain MUSCULOSKELETAL: Absent: myalgia, arthralgia, joint swelling, back pain, neck pain SKIN: ulcer breakdown on R lower extremity Absent: rash, itching, pallor HEMATOLOGIC/IMMUNOLOGIC: Absent: easy bleeding, easy bruising, lymphadenopathy, frequent infections ENDOCRINE: Absent: unexplained weight gain, unexplained weight loss, heat intolerance, cold intolerance NEUROLOGIC: Absent: headache, focal weakness or paresthesias, dizziness, unsteady gait, seizure, mental status changes, bladder or bowel incontinence PSYCHIATRIC: Absent: anxiety, depression, suicidal or homicidal ideation, hallucinations. PHYSICAL EXAMINATION Vital Signs - 24 hr 03/27/19 03/27/19 09:42 10:32 Temperature 97.9 F Pulse Rate 88 Respiratory 20 Rate Blood Pressure 160/96 O2 Sat by Pulse 97 100 Oximetry (%) GENERAL: Awake, alert, and fully oriented, in no acute distress. Obese HEAD: Normal with no signs of trauma. EYES: Pupils equal, round and reactive to light, extraocular movements intact, NECK: Normal range of motion, supple without lymphadenopathy, JVD, or masses. LUNGS: Breath sounds equal, clear to auscultation bilaterally. se. HEART: Regular rate and rhythm, normal S1 and S2 without murmur, rub or gallop. ABDOMEN: Soft, nontender, not distended, normoactive bowel sounds, no guarding, no rebound, no masses MUSCULOSKELETAL: Normal range of motion at all joints. No bony deformities or tenderness. No CVA tenderness. LOWER EXTREMITIES: 2+ pulses b/l DP pulses, warm, well-perfused. No calf tenderness. No peripheral edema. NEUROLOGICAL: Cranial nerves II-XII intact. Normal speech. PSYCHIATRIC: Cooperative. Good eye contact. Appropriate mood and affect. SKIN: dry, ulcers on inner and outer ankle of left foot, shallow and raw, no surrounding erythema CBC, BMP 03/27/19 10:00 03/27/19 10:00 ASSESSMENT/PLAN: Patient is a 43 y/o male with a history of heroin and cocaine abuse on methadone who is admitted for ulcers of the right ankle. #Non healing Ulcers of right ankle - 2/2 to poor wound healing, likely from combination poor nutrition and poor care - monitor for cellulitis, cover with Keflex and Clindamycin - patient will need f/u with wound care for better care of wounds - f/u CT and r/o and underlying infection - lower extremity US- f/u for any vascular disease which may contribute to non-healing ulcers - elevated CRP, consider MRI if clinically suspicious for Osteo, Xray not suspicious for osteo - tylenol 650 prn for pain #substance abuse - cocaine and heroin - continue Methadone - f/u urine tox - continue thiamine and folic acid #Elevated alakaline phosphate - elevated in the past, continue to monitor #DVT ppx - Heparin TID #FEN - regular diet - monitor lytes Dispo: Monitor on med surg Visit type - Emergency Visit Emergency Visit: Yes ED Registration Date: 03/27/19 Care time: The patient presented to the Emergency Department on the above date and was hospitalized for further evaluation of their emergent condition. - New Patient This patient is new to me today: Yes Date on this admission: 03/28/19 - Critical Care Critical Care patient: No ATTENDING PHYSICIAN STATEMENT I saw and evaluated the patient. I reviewed the resident's note and discussed the case with the resident. I agree with the resident's findings and plan as documented. SUBJECTIVE: OBJECTIVE: ASSESSMENT AND PLAN:
[2019-03-27] MEDS ORDERED: ACETAMINOPHEN 325 MG TABLET (FP) PO PRN (15:17)
[2019-03-27] MEDS ORDERED: ACETAMINOPHEN 325 MG TABLET (FP) ONE (16:47)
--- NOTE | 2019-03-27 17:48 | PN ---
Teaching Attending Note Name of Resident: Emily Man ATTENDING PHYSICIAN STATEMENT I saw and evaluated the patient. I reviewed the resident's note and discussed the case with the resident. I agree with the resident's findings and plan as documented. Seen and examined; please see resident note for further historical information. I personally verified all gates historical information and exam findings. Personally interpreted all imaging and diagnostics and reviewed appropriate consults. I reviewed all labs and vital signs as per resident note and EMR as documented. I agree with the above assessment and plan unless supplemented by myself in the following. Seen and examined, no new complaints. Agree with history of present illness family history and social history of onset the past medical and surgical history is implanted in the resident note.He has not failed outpatient treatment.He does not use injection drugs, but he does snort heroin occasionally. he was told to come to the ER by his grandmother as he is noncompliant. 10 item review of systems completed and is negative aside from as discussed in the subjective data in my own/the resident documentation. VS, labs, imaging reviewed NAD, AAO, resting comfortably in bed. RRR s1/2 no mgr Normal muscle tone, moves all 5 extremities with normal apparent strength Neck is supple, trachea midline, no cece LN Lungs CTAB with sym expansion NT ND +BS no cece organomegaly CN2-12 wnl; no FND NC AT EOMI PERRLA Normal mood, appropriate behavior, euthymic affect Evidence of chronic venous stasis more pronounced on the left side with no cece tenderness, scratch lopez without any cece discernible abscesses. No crepitus, etc. No exposed bone, no bleeding. CT with soft tissue edema, no CT or x-ray evidence of osteomyelitis and with ESR and CRP only marginally elevated less suspicious for true osteomyelitis picture. Assessment and plan: Patient is a 43-year-old -[place] male with a past medical history of heroin abuse on methadone. Confirming dose of methadone, got broad-spectrum antibiotics in the ER. Will convert to p.o. tomorrow and discharge home. Checking for underlying vascular disease with arterial Doppler. Problems include: -Cellulitis; clindamycin. Likely DC in AM tomorrow. -Old ankle fracture; no acute component. OP orthopedic referral; can cancel inpatient consult if not already called out. He [facility] years [facility]. -Heroin abuse; continue methadone. PRN clonidine as he has recently been using. -Morbid Obesity (BMI 37.3) Full Code
[2019-03-27] MEDS ORDERED: DOXYCYCLINE HYCLATE 100 MG CAPSULE PO SCH (18:00)
[2019-03-27] MEDS ORDERED: IBUPROFEN 600 MG TABLET (FP) PO ONE (20:16)
[2019-03-27] MEDS: IBUPROFEN 600 MG TABLET (FP) PO PRN (20:22)
[2019-03-27 20:45] VITALS: BMI 41.2
[2019-03-27] MEDS ORDERED: CEPHALEXIN MONOHYDRATE 500 MG CAPSULE (UD) PO SCH (22:00)
[2019-03-27] MEDS ORDERED: MELATONIN 5 MG TABLETS PO ONE (22:36)
[2019-03-28] MEDS: IBUPROFEN 600 MG TABLET (FP) PO PRN ×2 (03:31→11:19)
[2019-03-28] MEDS ORDERED: METHADONE 80 MG, METHADONE 20 MG PO SCH (08:15)
[2019-03-28] MEDS ORDERED: METHADONE HCL 40 MG DISPERSABLE TABLET ONE (08:45)
[2019-03-28] MEDS ORDERED: METHADONE HCL 10 MG TABLET ONE (08:46)
[2019-03-28 09:30] LABS: PHENCYCLIDINE,URINE NEGATIVE ng/ml (CUTOFF=25); URINE AMPHETAMINES NEGATIVE ng/ml (CUTOFF=500); URINE BARBITURATES NEGATIVE ng/ml (CUTOFF=200); URINE BENZODIAZEPINES NEGATIVE ng/ml (CUTOFF=200)
[2019-03-28 09:42] LABS: COCAINE, UR POSITIVE ng/ml (CUTOFF=300); OPIATES, URI POSITIVE ng/ml (CUTOFF=300)
[2019-03-28 09:43] LABS: METHADONE, UR POSITIVE ng/ml (CUTOFF=300)
[2019-03-28] MEDS ORDERED: CEPHALEXIN MONOHYDRATE 500 MG CAPSULE (UD) PO SCH (10:00)
[2019-03-28] MEDS ORDERED: ENOXAPARIN NA (PORCINE) 40 MG/0.4 ML DISP.SYRIN SQ SCH (10:00)
[2019-03-28] MEDS ORDERED: PNEUMOCOCCAL 23 VACCINE 0.5 ML VIAL IM ONE (10:00)
[2019-03-28] MEDS ORDERED: PNEUMOC 13-VAL CONJ-DIP CRM/PF 0.5 ML DISP.SYRIN IM ONE (10:00)
[2019-03-28] MEDS ORDERED: METHADONE HCL 10 MG TABLET PO SCH ×2 (10:00)
[2019-03-28] MEDS ORDERED: FLU VACCINE QUAD 60 MCG/0.5 ML (MDV 19-20) IM ONE (10:00)
--- NOTE | 2019-03-28 10:08 | CONSULT ---
Consult - text type - Consultation Consultation Note: ORTHOPEDIC SURGERY CONSULTATION NOTE Department of Orthopedic Surgery HISTORY OF PRESENT ILLNESS Simone Hurley is a 43 year old male who was admitted to [facility] with a left lower extremity ulcer. He has a history of cocaine and heroin abuse and is currently on methadone. The orthopedic service was consulted for evaluation of the left ankle. The patient has a history of a left ankle fracture 2 years ago that was treated nonoperatively. The fracture healed, however he has developed multiple chronic ulcers on his left leg and ankle since the injury. He has a history of venous stasis, and noted that his most recent ulcer developed a few months ago. The patient has not been following up with any provider. The patient denies any pain. Denies numbness, tingling or other constitutional complaints. Endorses tobacco use, drug use, (cocaine) and social alcohol use. Active Problems Problem Status Category Onset Ulcer of left lower extremity Acute Medical Wound infection Acute Medical Social History Smoking history Current some day smoker Aproximately how many 5 cigarettes per day Hx Alcohol Use No: socially/holidays Allergies Allergy/AdvReac Type Severity Reaction Status Date / Time shellfish derived Allergy Verified 03/27/19 09:41 Active Medications Generic Name Dose Route Start Last Admin Trade Name Freq PRN Reason Stop Dose Admin Acetaminophen 650 mg 03/27/19 15:17 03/28/19 05:42 Tylenol - PO 650 mg Q6H PRN Administration PAIN LEVEL 6-10 Cephalexin HCl 500 mg 03/28/19 10:00 Keflex - PO BID DALIA Clonidine 0.1 mg 03/27/19 14:16 Catapres - PO BID PRN ANXIETY Doxycycline Hyclate 100 mg 03/28/19 10:00 Vibramycin - PO BID@1000,1800 [facility] Enoxaparin Sodium 40 mg 03/28/19 10:00 Lovenox - SQ DAILY DALIA Folic Acid 1 mg 03/27/19 14:15 03/27/19 14:34 Folic Acid - PO 1 mg DAILY DALIA Administration Ibuprofen 600 mg 03/27/19 17:45 03/28/19 03:31 Motrin - PO 600 mg Q8H PRN Administration PAIN LEVEL 6-10 Methadone HCl 80 mg/ Methadone 100 mg 03/28/19 08:15 03/28/19 08:49 HCl 20 mg PO 100 mg 0600 DALIA Administration Thiamine HCl 100 mg 03/27/19 14:15 03/27/19 14:34 Vitamin B1 - PO 100 mg DAILY DALIA Administration Vital Signs (last) Temp Pulse Resp BP Pulse Ox 98.1 F 72 20 141/88 98 03/28/19 06:00 03/28/19 06:00 03/28/19 06:00 03/28/19 06:00 03/27/19 20:48 Intake and Output 03/26/19 03/27/19 03/28/19 23:59 23:59 23:59 Intake Total 130 610 Output Total 300 Balance 130 310 Intake: IV 03/27/2019 10 Oral 120 610 Output: Urine 300 Void 300 Other: Voiding Method Urinal Toilet # Unmeasured Voids Void 1 Weight 279 lb Height 5 ft 9 in Body Mass Index (BMI) 41.2 Weight Measurement Method Standing Scale Laboratory 03/27/19 10:00 03/27/19 10:00 PT with INR 12.30 SEC (9.7-13.0) 03/27/19 10:00 PTT (Actin FS) 37.9 SECONDS (25.2-36.5) H 03/27/19 10:00 FAMILY HISTORY Reviewed and noncontributory. REVIEW OF SYMPTOMS A twelve-point review of systems was performed and was negative except as noted in HPI. PHYSICAL EXAM Constitutional: Alert and oriented to person, place, and time. Appears well- developed and well-nourished. No acute distress, appropriate mood and affect. Right Lower Extremity: Skin warm, dry, and intact; no lesions, rashes or ulcers noted. Muscle mass equal and symmetric to contralateral side. No atrophy noted. No masses or effusions noted. No tenderness to palpation. No cords or calf tenderness. No significant calf/ankle edema. Full passive and active ROM, free from pain. Joints stable with no pathologic laxity. EHL/TA/GS motor intact; SILT distally; 2+ DP pulses; Cap refill brisk. Tone and reflexes normal. Left Lower Extremity: There is an ulcer on the lateral aspect of the ankle distal to the fibula with exudate. There is venous stasis changes of the lower extremity with multiple scars from healed ulcers. Hallux valgus deformity of the great toe.. Muscle mass equal and symmetric to contralateral side. No atrophy noted. No masses or effusions noted. No tenderness to palpation at the ankle or around the ulcer. No cords or calf tenderness. No significant calf/ ankle edema. Passive and active ankle ROM, free from pain. Joints stable with no pathologic laxity. EHL/TA/GS motor intact; SILT distally; 2+ DP pulses; Cap refill brisk. Tone and reflexes normal. IMAGING I personally reviewed all radiographs, CT, and other imaging. They demonstrate an old fracture deformity of the proximal fibula with synostosis of the distal tibiofibular joint. No signs of osteomyelitis or abscess formation. ASSESSMENT AND PLAN Simone Hurley is a 43 year old male presenting with left lower extremity venous insufficiency and a chronic venous stasis ulcer of the left ankle. We have reviewed the imaging and clinical findings in detail, as well as their potential implications. Imaging shows no signs of osteomyelitis or abscess formation. - No orthopedic surgical intervention at this time. - Recommend wound care consult. - Antibiotics as per primary medical team/ID. - Continue with medical management. - Pain control - DVT prophylaxis - Nutrition optimization, decubitus precautions heel/sacrum - PT/OT; WBAT All questions were answered. Thank you for involving our team in the care of this patient. Please have patient follow up with wound care. He will also need orthopedic follow up after discharge.
[2019-03-28] MEDS: FOLIC ACID 1 MG TABLET (FP) PO SCH (10:28)
[2019-03-28] MEDS: THIAMINE HCL 100 MG TABLET (FP) PO SCH (10:29)
[2019-03-28] MEDS: DOXYCYCLINE HYCLATE 100 MG CAPSULE PO SCH ×2 (10:29→17:31)
[2019-03-28 12:06] VITALS: TEMP 98.2
--- NOTE | 2019-03-28 12:37 | PN ---
Teaching Attending Note Name of Resident: Dolores Sims ATTENDING PHYSICIAN STATEMENT I saw and evaluated the patient. I reviewed the resident's note and discussed the case with the resident. I agree with the resident's findings and plan as documented. Seen and examined; please see resident note for further historical information. I personally verified all gates historical information and exam findings. Personally interpreted all imaging and diagnostics and reviewed appropriate consults. I reviewed all labs and vital signs as per resident note and EMR as documented. I agree with the above assessment and plan unless supplemented by myself in the following. Doing well today with no new complaints. Seen by infectious disease and he states that he is doing stable and afebrile does not appear to have osteomyelitis on this imaging. He may follow-up with him as an outpatient in 1 to 2 weeks. He has benefited maximally from this hospitalization. Mild elevation of ESR and CRP is likely secondary to the patient with multiple ongoing issues with vascular disease including scratching, drug abuse and associated systemic inflammation, etc. etc. ESR and CRP were only mildly elevated. He is positive for opiates, methadone, and cocaine on his drug screen. He is thus high risk for discharge home pain medications he will not be provided with any. He was afebrile overnight without any tachycardia. He will follow-up with his primary care physician later this week and follow-up with orthopedic surgery in 1 to 2 weeks. He will be discharged on a 7-day course of oral antibiotics. There is no evidence of deep-seated infection any scans. DC summary will be updated by resident with results of the lower extremity Doppler but the patient has stable pulses without any symptoms of critical limb ischemia and this can likely be followed up as an outpatient. 10 item review of systems completed and is negative aside from as discussed in the subjective data in my own/the resident documentation. VS, labs, imaging reviewed NAD, AAO, resting comfortably in bed. RRR s1/2 no mgr Normal muscle tone, moves all 5 extremities with normal apparent strength Neck is supple, trachea midline, no cece LN Lungs CTAB with sym expansion NT ND +BS no cece organomegaly CN2-12 wnl; no FND NC AT EOMI PERRLA Normal mood, appropriate behavior, euthymic affect No skin breakdown or rashes noted Agree with the discharge planning as delineated in the resident note with follow -ups, etc. Resume home diet, resume home activity level. He can ambulate without issues. He should follow-up outpatient with rehabilitation services and is not interested in rehab inpatient at this time DC home FC
[2019-03-28 13:44] VITALS: BP 152/91; PULSE 67
--- NOTE | 2019-03-28 13:48 | DS ---
Physical Exam: SUBJECTIVE: Patient seen and examined. No acute events overnight. patient denies chest pain, abd pain, SOB, chills, fevers. Complains of some pain when walking due to ulcers. OBJECTIVE: Vital Signs Period Temp Pulse Resp BP Sys/Gold Pulse Ox Last 24 Hr 97.9 F-98.2 F 66-97 16-20 116-155/76-99 97-98 PHYSICAL EXAM GENERAL: The patient is awake, alert, and fully oriented, in no acute distress. HEAD: Normal with no signs of trauma. EYES: PERRL, EOMI ENT: MMM NECK: Trachea midline, full range of motion, supple. LUNGS: Breath sounds equal, clear to auscultation bilaterally, no wheezes, no crackles, no accessory muscle use. HEART: RRR, no murmur noted ABDOMEN: Soft, nontender, nondistended, normoactive bowel sounds, no guarding, no rebound EXTREMITIES: 2+ pulses, warm, well-perfused, no edema. NEUROLOGICAL: Normal speech, gait not observed. sensation intact throughout PSYCH: Normal mood, normal affect. SKIN: dry, ulcers on inner and outer ankle of left foot, shallow and raw, no surrounding erythema, no drainage, no active bleeding, no foul odor LABS Laboratory Results - last 24 hr 03/27/19 03/28/19 14:33 03:30 Lactic Acid 1.4 Opiates Screen Positive A* Methadone Screen Positive A* Barbiturate Screen Negative Phencyclidine Screen Negative Ur Amphetamines Screen Negative MDMA (Ecstasy) Screen Negative Benzodiazepines Screen Negative Cocaine Screen Positive A* U Marijuana (THC) Screen Negative HOSPITAL COURSE: Date of Admission:03/27/19 Date of Discharge: 03/28/19 43 y/o male with a history of heroin and cocaine abuse on methadone who is admitted for ulcers of the right ankle. Patient states the ulcers have been chronic and he came in as he was in pain. Patient does not follow up with a phlebotomy specialist. Patient was started on abx as prophylaxis against infection. Imaging of the ankle did not show any signs of fracture or abscess. Patient was seen by Orthopedics who did not suggest any surgical intervention at this time. A lower extremity u/s did not show any signs of DVT. Patient given referral for Dr. Ying to follow up at wound care clinic. Discharged on Doxycycline 100mg BID for 6 days and Keflex 500mg PO BID for 4 more days. Patient stable for discharge. Minutes to complete discharge: 36 Discharge Summary Problems reviewed: Yes Reason For Visit: ULCER OF LEFT LOWER EXTREMITY,LOCAL INFECTION OF W Current Active Problems Ulcer of left lower extremity (Acute) Wound infection (Acute) Condition: Stable - Instructions Diet, Activity, Other Instructions: You presented to the hospital due to pain in your left foot due to a chronic wound. We started you on antibiotics to prevent infection of the wound and will be sent home with continuing antibiotics. You had imaging of your left leg done which did not show any signs of fracture or abscess. You were seen by Orthopedics who did not recommend surgical intervention at this time. Medication Changes: 1. START Doxycycline 100mg twice daily for the next 6 days for further antibiotic coverage. 2. START Keflex 500mg twice daily for the next 4 days for further antibiotic coverage. 3. You may take Motrin 600mg up to 3 times daily as needed for severe pain for the next 2 days. We do not recommend extermination supervisor use of Motrin or other NSAID medications as this can cause irritation to your stomach and colon. Follow up with the following physicians: 1. Please follow up with your primary care provider within one week of discharge for further management of your medical conditions and to discuss the medications that were started while you were in the hospital. If you do not have a primary care doctor a referral has been provided for the [facility]. 2. Recommended to follow up with Dr. Ying, wound care, within 1 week of discharge for further management of your leg wound. Please call Dr. Ying's office at the wound care center located on the 5th floor of the hospital to schedule an appointment. 3. Recommended to follow up Dr. Plummer, Orthopedics, as needed if you have worsening ankle pain. Activity and Diet 1. Avoid trauma to your lower extremities. 2. Please monitor your diet and continue to eat a healthy diet. Continue all your other medications as prescribed Please return to the ER if you have any signs or symptoms of chest pain, shortness of breath, uncontrollable fever, chills, nausea, vomiting, numbness, tingling, or weakness in any part of your body, changes in vision, or slurred speech. Please return to the ER if symptoms persist, worsen, or new symptoms arise. Referrals: [facility] [Provider Group] Darell Ying DO [Staff Physician] - Lake Plummer DO [Staff Physician] - Disposition: HOME - Home Medications Comprehensive Discharge Medication List: Ambulatory Orders Methadone [Dolophine -] 105 mg PO DAILY 01/27/14 Cephalexin Monohydrate [Keflex -] 500 mg PO BID 4 Days #8 capsule 03/28/19 Doxycycline Hyclate [Vibramycin -] 100 mg PO BID@1000,1800 6 Days #12 capsule Ibuprofen [Motrin -] 600 mg PO Q8H PRN 2 Days #6 tablet 03/28/19 This patient is new to me today: Yes Date on this admission: 03/30/19 Emergency Visit: Yes ED Registration Date: 03/27/19 Care time: The patient presented to the Emergency Department on the above date and was hospitalized for further evaluation of their emergent condition. Critical Care patient: No - Discharge Referral Referred to [facility] Med [facility] No ATTENDING PHYSICIAN STATEMENT I saw and evaluated the patient. I reviewed the resident's note and discussed the case with the resident. I agree with the resident's findings and plan as documented. SUBJECTIVE: OBJECTIVE: ASSESSMENT AND PLAN:
== END 2019-03-28 18:01 | disposition home or self-care (01) | DRG 383 ==
LOC: JER 09:37 → JERBED 14:21 → J4S 20:55
PROVIDERS: ADMIT Internal Medicine; ATTEND Internal Medicine
DX: L03.116 Cellulitis of left lower limb (principal); L97.319 Non-pressure chronic ulcer of right ankle with unspecified severity; F14.10 Cocaine abuse, uncomplicated; F11.10 Opioid abuse, uncomplicated
CPT/HCPCS: 36415; 73590-TC-LT-FY; 73610-TC-LT-FY; 73630-TC-LT; 73701-TC-RT; 80053; 80307; 81003; 83605; 85025; 85610; 85651; 85730; 86140; 86850; 86900; 86901; 87040; 87086; 90732; 93005; 93010; 93925-TC; 97116-GP; 97162-GP; 99285-25; G0008; G0009; J0131; Q2036; Q9967

== ENCOUNTER 2019-10-27 15:54 | Emergency (ER) | payer OTHER ==
[2019-10-27 16:03] VITALS: BMI 36.9
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
[2019-10-27] MEDS ORDERED: LACTATED RINGERS SOLUTION 1,000 ML/1,000 ML INFUS.BAG IV STA (17:09)
--- NOTE | 2019-10-27 17:37 | PDOC ---
Documentation entered by Sindy George SCRIBE, acting as scribe for Stephania Pruitt DO. Stephania Pruitt DO: This documentation has been prepared by the vi, Sindy George SCRIBE, under my direction and personally reviewed by me in its entirety. I confirm that the documentation accurately reflects all work, treatment, procedures, and medical decision making performed by me. Attending Attestation - Resident Resident Name: Cammy Ivory - ED Attending Attestation I have performed the following: I have examined & evaluated the patient, The case was reviewed & discussed with the resident, I agree w/resident's findings & plan, Exceptions are as noted - HPI HPI: 10/27/19 17:30 The patient is a 44 year old male with past medical history significant for DM who presents to the emergency department with increased urination and increased thirst. The patient reports having to use the bathroom every 30 minutes, with episodes of dribbling after peeing. The patient reports he was recently diagnosed with DM 3 days ago and started on metformin. - Physicial Exam PE: 10/27/19 17:33 gen: aaox3, nad heent: posterior pharynx clear, mmm heart: +s1s2 reg lungs: cta b/l abd: soft, nt/nd +bs gu: +fungal infection tip of penis, no other rashes ext: no c/c/e - Medical Decision Making 10/27/19 17:35 a/p: 44yo male with polyuria and polydypsia with new dx of dm last week -on metformin -concern for uncontrolled DM and elevated glu vs uti from uncontrolled dm -will send labs, ua, ekg -will monitor and reassess -ivf hydration in addition to po fluid intake 10/27/19 17:37 t wave inversions on ekg are unchanged from prior ekg in March 2019 10/27/19 20:38 ua shows glu and ketones labs reviewed and elevated glu repeat finger stick 292 pt feeling better and stable for dc to home Heart Score/ECG Review - ECG Intrepretation Comment:: 10/27/19 17:36 sinus at 76, nl axis, t wave inversions inferior leads and lateral leads, no acute st segment changes, abnl ekg Discharge - Discharge Information Problems reviewed: Yes Clinical Impression/Diagnosis: Polyuria, Polydipsia, Hyperglycemia due to diabetes mellitus Condition: Stable Disposition: HOME - Admission No - Additional Discharge Information Prescriptions: Nystatin 15 gm TP BID #1 tube - Follow up/Referral Referrals: Vance Muhammad MD [Primary Care Provider] - Moreno Johnson MD [Staff Physician] - - Patient Discharge Instructions Additional Instructions: You were evaluated today for increased urination and thirst most likely related to your diabetes. Continue following a diabetic diet and taking your metformin as prescribed. Take Nystatin for your penile fungal infection. Follow up with your PCP within 5 days to further monitor your condition. Return to the ED if your condition worsens and/or you experience nausea, vomiting, abdominal pain, lethargy, lightheadedness, fevers, chills, painful urination, bloody urine. - Post Discharge Activity
[2019-10-27 17:47] LABS: HEMATOCRIT 40.9 % (35.4-49); HEMOGLOBIN 13.8 GM/dL (11.7-16.9); MCH 28.7 pg (25.7-33.7); MCHC 33.6 g/dl (32.0-35.9); MEAN CELL VOLUME 85.2 fl (80-96); PLATELET COUNT 235 K/MM3 (134-434); RDW 13.9 % (11.9-15.9); WHITE BLOOD COUNT 9.9 K/mm3 (4.0-10.0)
[2019-10-27 18:11] LABS: ALBUMIN 3.4 g/dl (3.4-5.0); BILIRUBIN,TOTAL 0.4 mg/dL (0.2-1); BLOOD UREA NITROGEN 7.5 mg/dL (7-18); CALCIUM 8.7 mg/dL (8.5-10.1); CREATININE 0.8 mg/dL (0.55-1.3); POTASSIUM 3.8 mmol/L (3.5-5.1); TOT PROT 7.4 g/dl (6.4-8.2)
[2019-10-27 18:38] LABS: VENOUS BASE EXCESS -2.4 mmol/L (-2-2); VENOUS O2 SATURATION 90.5 % (70-80); VENOUS PCO2 43.9 mmHg (38-52); VENOUS PH 7.346 (7.310-7.410)
[2019-10-27 19:40] LABS: URINE APPEARANCE CLEAR; URINE BILIRUBIN NEGATIVE (NEGATIVE); URINE COLOR YELLOW; URINE GLUCOSE (UA) 3+ (NEGATIVE); URINE KETONE 2+ (NEGATIVE); URINE LEUK ESTERASE NEGATIVE (NEGATIVE); URINE NITRITE NEGATIVE (NEGATIVE); URINE PROTEIN NEGATIVE (NEGATIVE); URINE UROBILINOGEN 0.2 mg/dL (0.2-1.0)
[2019-10-27 20:40] VITALS: BP 140/86; PULSE 74
--- NOTE | 2019-10-28 11:04 | EKG ---
Test Reason : Blood Pressure : / mmHG Vent. Rate : 076 BPM Atrial Rate : 076 BPM P-R Int : 152 ms QRS Dur : 082 ms QT Int : 378 ms P-R-T Axes : 062 021 -17 degrees QTc Int : 425 ms NORMAL SINUS RHYTHM POSSIBLE LEFT ATRIAL ENLARGEMENT NONSPECIFIC T WAVE ABNORMALITY ABNORMAL ECG WHEN COMPARED WITH ECG OF 27-MAR-2019 10:42, NO SIGNIFICANT CHANGE WAS FOUND Confirmed by BREANNA FULLER MD ([id number]) on 10/28/2019 11:03:53 AM Referred By: Confirmed By:BREANNA FULLER MD
== END 2019-10-27 20:40 | disposition home or self-care (01) ==
LOC: JER 15:54
PROC: 3E0337Z Introduction of Electrolytic and Water Balance Substance into Peripheral Vein, Percutaneous Approach (ICD-10-PCS; principal; 2019-10-27)
DX: R35.8 Other polyuria (principal); R63.1 Polydipsia; E11.65 Type 2 diabetes mellitus with hyperglycemia
CPT/HCPCS: 36415; 80053; 81003; 82803; 82962; 85027; 87086; 93005; 93010; 99284-25

== ENCOUNTER 2019-11-01 08:49 | Emergency (ER) | payer OTHER ==
[2019-11-01 08:55] VITALS: BP 170/86; PULSE 78; TEMP 98.3; BMI 36.9
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
[2019-11-01] MEDS ORDERED: FAMOTIDINE 20 MG/50 ML IVPB 20 MG/50 ML MG IVPB ONE ×2 (09:28→09:39)
[2019-11-01] MEDS ORDERED: LACTATED RINGERS SOLUTION 1000 ML INFUS.BAG IV ONE ×2 (09:37→11:51)
[2019-11-01 09:53] LABS: VENOUS BASE EXCESS -6.8 mmol/L (-2-2); VENOUS O2 SATURATION 90.3 % (70-80); VENOUS PCO2 37.2 mmHg (38-52); VENOUS PH 7.318 (7.310-7.410)
[2019-11-01 09:55] LABS: BASO % 0.7 % (0-2.0); EOS % 1.6 % (0-4.5); HEMATOCRIT 39.5 % (35.4-49); HEMOGLOBIN 13.5 GM/dL (11.7-16.9); LYMPH % 12.1 % (8-40); MCHC 34.1 g/dl (32.0-35.9); MEAN PLT VOLUME 9.3 fl (7.5-11.1); MONO % 6.7 % (3.8-10.2); NEUT % 78.9 % (42.8-82.8); PLATELET COUNT 223 K/MM3 (134-434); RBC 4.64 M/mm3 (4.00-5.60); RDW 13.8 % (11.9-15.9); WHITE BLOOD COUNT 10.2 K/mm3 (4.0-10.0)
[2019-11-01 10:29] LABS: ALBUMIN 3.2 g/dl (3.4-5.0); ALK PHOS 170 U/L (45-117); ANION GAP 12 MMOL/L (8-16); BILIRUBIN,TOTAL 0.3 mg/dL (0.2-1); BLOOD UREA NITROGEN 5.2 mg/dL (7-18); CALCIUM 8.9 mg/dL (8.5-10.1); CHLORIDE 99 mmol/L (98-107); CO2 25 mmol/L (21-32); CREATININE 0.7 mg/dL (0.55-1.3); GLUCOSE,RANDOM 369 mg/dL (74-106); LIPASE 72 U/L (73-393); MAGNESIUM 1.8 mg/dL (1.8-2.4); PHOSPHOROUS 3.2 mg/dL (2.5-4.9); POTASSIUM 3.9 mmol/L (3.5-5.1); SGOT/AST 17 U/L (15-37); SGPT/ALT 22 U/L (13-61); SODIUM 136 mmol/L (136-145); TOT PROT 6.9 g/dl (6.4-8.2)
[2019-11-01 10:46] LABS: URINE APPEARANCE CLEAR; URINE BILIRUBIN NEGATIVE (NEGATIVE); URINE COLOR YELLOW; URINE GLUCOSE (UA) 3+ (NEGATIVE); URINE KETONE 4+ (NEGATIVE); URINE LEUK ESTERASE NEGATIVE (NEGATIVE); URINE NITRITE NEGATIVE (NEGATIVE); URINE PROTEIN NEGATIVE (NEGATIVE); URINE UROBILINOGEN 0.2 mg/dL (0.2-1.0)
--- NOTE | 2019-11-01 11:54 | PDOC ---
Documentation entered by Anjelica Mejia SCRIBE, acting as scribe for Kaylynn Teresa MD. Kaylynn Teresa MD: This documentation has been prepared by the Roberto lebron Xhesika, SCRIBE, under my direction and personally reviewed by me in its entirety. I confirm that the documentation accurately reflects all work, treatment, procedures, and medical decision making performed by me. Attending Attestation - Resident Resident Name: Jane Franz - ED Attending Attestation I have performed the following: I have examined & evaluated the patient, The case was reviewed & discussed with the resident, I agree w/resident's findings & plan, Exceptions are as noted - HPI HPI: 11/01/19 09:24 The patient is a 44 year old male with past medical history of DM (compliant with metformin), heroin and cocaine use (snorting/smoking) who presents to the emergency department with elevated glucose, 5 episodes of bilious emesis and nausea. Pt denies any nausea while in the ED. Pt states he checked his BS yesterday and today, and the reading said "high." Pt states prior to yesterday his BS has been in the 300-400's. Pt states he last used heroin and cocaine 2 days ago. The patient denies chest pain, shortness of breath, headache and dizziness. Denies fever, chills, cough, nausea, diarrhea and constipation. Denies dysuria, frequency, urgency and hematuria. Allergies: shellfish derived PCP: Vance Mcneill - Physicial Exam PE: 11/01/19 10:32 GENERAL: well-appearing, A/Ox4, no distress, answers questions appropriately, a bit slurred speech and a bit prolonged speech latency, obese HEENT: PERRLA, pupils 3mm and reactive, EOMI, moist mucous membranes NECK/BACK: no midline ttp, no spinal step-off or deformity, no hematoma, full ROM, neck supple CARDIOVASCULAR: regular rate/rhythm, no MGR, strong peripheral pulses, capillary refill <2 seconds, extremities wwp, no edema LUNGS/RESPIRATORY: no respiratory distress, CTAB GI/ABDOMEN: symmetric [id number], normoactive BS, soft, no ttp, no midline pulsatile masses : no CVA tenderness MSK/EXTREMITIES: no muscle atrophy, no acute deformity SKIN: warm and dry, no pallor, no jaundice, no rash, no pathologic-appearing bruising, no skin breakdown, no cuts, no lesions NEUROLOGICAL: GCS 15, CN II-XII grossly intact, 5/5 strength proximally and distally, no facial droop - Medical Decision Making 11/01/19 10:36 44YOM with DM p/w nausea and vomiting without pain. Initial Vital Signs Temp Pulse Resp BP Pulse Ox 98.3 F 78 20 170/86 100 11/01/19 08:51 11/01/19 08:51 11/01/19 08:51 11/01/19 08:51 11/01/19 08:51 Possibly gastroparesis, DKA, HHS, infection/inflammation such as UTI/pyelonephritis, PNA, bronchitis, skin infection, pancreatitis, c holecystitis, etc. Possible EtOH or drug use or withdrawal, biliary tract obstruction, SBO, ACS, etc. EKG: Reviewed; results as noted in ECG Review section. Provider Orders Category Date Time Status VBG [VENOUS BLOOD GAS] Stat ABG 11/01/19 09:30 Completed EKG [ELECTROCARDIOGRAM] [CARD] Stat Cardiology 11/01/19 09:08 Ordered BGM (Blood Glucose Monitoring) NOW Care 11/01/19 09:08 Active EKG needed NOW Care 11/01/19 09:09 Completed BETA-HYDROXYBUTYRATE Stat Lab 11/01/19 09:30 Completed CARDIAC PROFILE (SJ) Stat Lab 11/01/19 09:30 Completed CBC WITH DIFFERENTIAL Stat Lab 11/01/19 09:30 Completed COMP METABOLIC PANEL Stat Lab 11/01/19 09:30 Completed LIPASE Stat Lab 11/01/19 09:30 Completed MAGNESIUM Stat Lab 11/01/19 09:30 Completed PHOSPHOROUS Stat Lab 11/01/19 09:30 Completed POC GLUCOSE TESTING Routine Lab 11/01/19 09:37 Completed UA (SJ) ONLY Stat Lab 11/01/19 10:00 Ordered Famotidine 20 mg/50 ml Ivpb [Pepcid 20 mg Premixed Ivpb Medication 11/01/19 09:28 Discontinued -] 20 mg in 50 ml IVPB ONCE Famotidine 20 mg/50 ml Ivpb [Pepcid 20 mg Premixed Ivpb Medication 11/01/19 09:39 Discontinued -] 20 mg in 50 ml IVPB UD Lactated Ringers Solution Medication 11/01/19 09:37 Discontinued 1,000 ml IV NOW ONE IV Insert NOW Phy Order 11/01/19 09:09 Active Saline Lock, Insert ONCE Phy Order 11/01/19 09:15 Ordered Medications Discontinued Medications Generic Name Dose Route Start Last Admin Trade Name Yazmin PRN Reason Stop Dose Admin Famotidine/Sodium Chloride 20 mg in 50 mls @ 100 mls/hr 11/01/19 09:28 11/01/19 10:00 Pepcid 20 Mg Premixed Ivpb - IVPB 11/01/19 09:57 100 mls/hr ONCE ONE Administration Famotidine/Sodium Chloride Confirm 11/01/19 09:39 Pepcid 20 Mg Premixed Ivpb - Administered 11/01/19 09:40 Dose 20 mg in 50 mls @ ud IVPB .STK-MED ONE Lactated Ringer's 1,000 ml 11/01/19 09:37 11/01/19 10:00 Lactated Ringers Solution IV 11/01/19 09:38 1,000 ml NOW ONE Administration Lab Results WBC 10.2 K/mm3 (4.0-10.0) H 11/01/19 09:30 RBC 4.64 M/mm3 (4.00-5.60) 11/01/19 09:30 Hgb 13.5 GM/dL (11.7-16.9) 11/01/19 09:30 Hct 39.5 % (35.4-49) 11/01/19 09:30 MCV 85.0 fl (80-96) 11/01/19 09:30 MCH 29.0 pg (25.7-33.7) 11/01/19 09:30 MCHC 34.1 g/dl (32.0-35.9) 11/01/19 09:30 RDW 13.8 % (11.9-15.9) 11/01/19 09:30 Plt Count 223 K/MM3 (134-434) 11/01/19 09:30 MPV 9.3 fl (7.5-11.1) 11/01/19 09:30 Absolute Neuts (auto) 8.0 K/mm3 (1.5-8.0) 11/01/19 09:30 Neutrophils % 78.9 % (42.8-82.8) D 11/01/19 09:30 Lymphocytes % 12.1 % (8-40) D 11/01/19 09:30 Monocytes % 6.7 % (3.8-10.2) 11/01/19 09:30 Eosinophils % 1.6 % (0-4.5) 11/01/19 09:30 Basophils % 0.7 % (0-2.0) 11/01/19 09:30 Nucleated RBC % 0 % (0-0) 11/01/19 09:30 VBG pH 7.318 (7.310-7.410) 11/01/19 09:30 POC VBG pCO2 37.2 mmHg (38-52) L 11/01/19 09:30 POC VBG pO2 62.6 mmHg (28-48) H 11/01/19 09:30 VBG HCO3 18.7 mmol/L (23-29) L 11/01/19 09:30 VBG O2 Sat (Berny) 90.3 % (70-80) H 11/01/19 09:30 VBG Base Excess -6.8 mmol/L (-2-2) L 11/01/19 09:30 Sodium 136 mmol/L (136-145) 11/01/19 09:30 Potassium 3.9 mmol/L (3.5-5.1) 11/01/19 09:30 Chloride 99 mmol/L (98-107) 11/01/19 09:30 Carbon Dioxide 25 mmol/L (21-32) 11/01/19 09:30 Anion Gap 12 MMOL/L (8-16) 11/01/19 09:30 BUN 5.2 mg/dL (7-18) L 11/01/19 09:30 Creatinine 0.7 mg/dL (0.55-1.3) 11/01/19 09:30 Est GFR (CKD-EPI)AfAm 133.96 11/01/19 09:30 Est GFR (CKD-EPI)NonAf 115.58 11/01/19 09:30 POC Glucometer 362 UNITS (80-120) 11/01/19 09:37 Random Glucose 369 mg/dL (74-106) H 11/01/19 09:30 Calcium 8.9 mg/dL (8.5-10.1) 11/01/19 09:30 Phosphorus 3.2 mg/dL (2.5-4.9) 11/01/19 09:30 Magnesium 1.8 mg/dL (1.8-2.4) 11/01/19 09:30 Total Bilirubin 0.3 mg/dL (0.2-1) 11/01/19 09:30 AST 17 U/L (15-37) 11/01/19 09:30 ALT 22 U/L (13-61) 11/01/19 09:30 Alkaline Phosphatase 170 U/L (45-117) H 11/01/19 09:30 Creatine Kinase 82 U/L (26-308) 11/01/19 09:30 Troponin I < 0.02 ng/ml (0.00-0.05) 11/01/19 09:30 Total Protein 6.9 g/dl (6.4-8.2) 11/01/19 09:30 Albumin 3.2 g/dl (3.4-5.0) L 11/01/19 09: Lipase 72 U/L (73-393) L 11/01/19 09:30 Beta-Hydroxybutyrate 42.2 mg/dL (0.2-2.8) H 11/01/19 09:30 Urine Color Yellow 11/01/19 09:30 Urine Appearance Clear 11/01/19 09:30 Urine pH 5.0 (5.0-8.0) 11/01/19 09:30 Ur Specific [place] 1.033 (1.010-1.035) 11/01/19 09:30 Urine Protein Negative (NEGATIVE) 11/01/19 09:30 Urine Glucose (UA) 3+ (NEGATIVE) H 11/01/19 09:30 Urine Ketones 4+ (NEGATIVE) H 11/01/19 09:30 Urine Blood Negative (NEGATIVE) 11/01/19 09:30 Urine Nitrite Negative (NEGATIVE) 11/01/19 09:30 Urine Bilirubin Negative (NEGATIVE) 11/01/19 09: Urine Urobilinogen 0.2 mg/dL (0.2-1.0) 11/01/19 09:30 Ur Leukocyte Esterase Negative (NEGATIVE) 11/01/19 09:30 The patient is not in DKA, has no pain, states is hungry, no nausea or vomiting in the department after meds, is tolerating PO and has receive IV fluids. States he has all his prescribed medications at home. Prior to being diagnosed with DM a couple of weeks ago, he had not seen a doctor in many years. He has likely been living with BG in the 300s for many months or years. Given that he has likely been living at this baseline there is no indication for insulin or other new PO medication in the ED at this time. The patient has a PCP and will call them today to make an appointment. We discuss his results at length and he understands the seriousness of the diagnosis and all of the acute and chronic complications of his BG running this high. He will take his meds at home exactly as prescribed and will make an immediate f/u appointment with Dr. Muhammad as instructed. Referral information given for [facility] in case he needs it, per his request. This Pt has gotten significant relief of symptoms while in the ED. On last reassessment, vitals are wnl, pain is reasonably controlled, and exam is benign. Workup is not concerning for emergency-level pathology at this time. This Pt is appropriate for discharge with close outpatient follow up. They are comfortable with this plan and will follow up with PCP in 1-3 days. Specific return prec autions are discussed and he will come back to the ER if necessary. Heart Score/ECG Review #1 11/01/19 09:44 Sinus rhythm, rate 82, normal axis and intervals, TWI in III/aVF which are old, otherwise no acute ST-T changes Discharge - Discharge Information Problems reviewed: Yes Clinical Impression/Diagnosis: Hyperglycemia due to diabetes mellitus, High blood pressure Nausea & vomiting Qualifiers: Vomiting type: unspecified Vomiting Intractability: non-intractable Qualified Code(s): R11.2 - Nausea with vomiting, unspecified Condition: Stable Disposition: HOME - Admission No - Follow up/Referral Referrals: [facility] – [place] [facility] [place] [Provider Group] Donya Nichols MD [Staff Physician] - Vance Muhammad MD [Primary Care Provider] - - Patient Discharge Instructions Additional Instructions: You came into the ER high blood sugar and nausea/vomiting. In the ED, you were evaluated with blood work and urinalysis. Your results indicate that your blood sugar . You do not appear to be an acute need for immediate hospitalization. You were advised to follow up with your primary care doctor the next 2-3 days. CALL TODAY TO SCHEDULE AN APPOINTMENT. You were given a referral to another primary care doctor. If you cannot schedule an appointment with Dr. Muhammad for the next 2-3 days, SCHEDULE AN APPOINTMENT WITH THIS OTHER DOCTOR. Come back to the ER immediately with any new or worsening concerns, such as high blood sugars, non-stop nausea and vomiting. Thank you for coming to the [facility] ER. We hope you feel better soon! - Post Discharge Activity
--- NOTE | 2019-11-01 16:30 | EKG ---
Test Reason : Blood Pressure : / mmHG Vent. Rate : 082 BPM Atrial Rate : 082 BPM P-R Int : 154 ms QRS Dur : 082 ms QT Int : 366 ms P-R-T Axes : 051 013 -18 degrees QTc Int : 427 ms NORMAL SINUS RHYTHM LEFT ATRIAL ENLARGEMENT LEFT VENTRICULAR HYPERTROPHY ABNORMAL ECG WHEN COMPARED WITH ECG OF 27-OCT-2019 17:25, NO SIGNIFICANT CHANGE WAS FOUND Confirmed by MD FREDERICK, DEBORA ([id number]) on 11/01/2019 4:29:43 PM Referred By: Confirmed By:DEBORA MACK MD
== END 2019-11-01 13:50 | disposition home or self-care (01) ==
LOC: SUPCPDRO 08:49 → JER 08:49
PROC: 3E033NZ Introduction of Analgesics, Hypnotics, Sedatives into Peripheral Vein, Percutaneous Approach (ICD-10-PCS; principal; 2019-11-01)
DX: E11.65 Type 2 diabetes mellitus with hyperglycemia (principal); R03.0 Elevated blood-pressure reading, without diagnosis of hypertension; R11.2 Nausea with vomiting, unspecified
CPT/HCPCS: 36415; 80053; 81003; 82010; 82550; 82803; 82962; 83690; 83735; 84100; 84484; 85025; 93005; 93010; 99285-25

== ENCOUNTER 2021-02-16 04:30 | Emergency (ER) | payer OTHER ==
[2021-02-16 05:27] VITALS: BMI 32.5
[2021-02-16] MEDS ORDERED: SODIUM CHLORIDE 1,000 ML IV STA (07:43)
[2021-02-16 09:05] LABS: BASO % 0.8 % (0-2.0); EOS % 0.5 % (0-4.5); HEMATOCRIT 40.3 % (35.4-49); HEMOGLOBIN 14.2 GM/dL (11.7-16.9); LYMPH % 14.5 % (8-40); MCH 29.9 pg (25.7-33.7); MCHC 35.1 g/dl (32.0-35.9); MEAN CELL VOLUME 85.2 fl (80-96); MEAN PLT VOLUME 8.7 fl (7.5-11.1); MONO % 15.1 % (3.8-10.2); NEUT % 69.1 % (42.8-82.8); PLATELET COUNT 221 10^3/uL (134-434); RBC 4.73 M/mm3 (4.00-5.60); RDW 13.4 % (11.9-15.9); VENOUS BASE EXCESS 0.3 mmol/L (-2-2); VENOUS O2 SATURATION 57.6 % (70-80); VENOUS PCO2 50.7 mmHg (38-52); VENOUS PH 7.343 (7.310-7.410); WHITE BLOOD COUNT 8.5 K/mm3 (4.0-10.0)
[2021-02-16 09:13] LABS: INR 1.09 (0.83-1.09); PROTHROMBIN TIME (PATIENT) 12.8 SEC (9.7-13.0)
[2021-02-16 09:16] LABS: ACTIVATED PTT 35.2 SECONDS (25.2-36.5)
[2021-02-16 09:23] LABS: CHLORIDE 97 mmol/L (98-107); SODIUM 133 mmol/L (136-145)
[2021-02-16 09:25] LABS: CALCIUM 8.9 mg/dL (8.5-10.1)
[2021-02-16 09:26] LABS: ALBUMIN 3.7 g/dl (3.4-5.0); ANION GAP 6 MMOL/L (8-16); BLOOD UREA NITROGEN 8.1 mg/dL (7-18); CO2 30 mmol/L (21-32); GLUCOSE,RANDOM 297 mg/dL (74-106); MAGNESIUM 2.1 mg/dL (1.8-2.4)
[2021-02-16 09:28] LABS: SGOT/AST 31 U/L (15-37)
[2021-02-16 09:29] LABS: CREATININE 0.8 mg/dL (0.55-1.3); SGPT/ALT 30 U/L (13-61)
[2021-02-16 09:30] LABS: BILIRUBIN,TOTAL 0.3 mg/dL (0.2-1); TOT PROT 7.8 g/dl (6.4-8.2)
[2021-02-16 09:31] LABS: ALK PHOS 123 U/L (45-117)
[2021-02-16 11:16] LABS: URINE APPEARANCE CLEAR; URINE BILIRUBIN NEGATIVE (NEGATIVE); URINE COLOR YELLOW; URINE GLUCOSE (UA) 3+ (NEGATIVE); URINE KETONE 1+ (NEGATIVE); URINE LEUK ESTERASE NEGATIVE (NEGATIVE); URINE NITRITE NEGATIVE (NEGATIVE); URINE PROTEIN NEGATIVE (NEGATIVE); URINE UROBILINOGEN 0.2 mg/dL (0.2-1.0)
[2021-02-16 11:34] VITALS: BP 138/89; PULSE 89; TEMP 99.3
== END 2021-02-16 11:30 | disposition home or self-care (01) ==
LOC: JER 04:30
PROC: 3E0337Z Introduction of Electrolytic and Water Balance Substance into Peripheral Vein, Percutaneous Approach (ICD-10-PCS; principal; 2021-02-16)
DX: U07.1 COVID-19 (principal)
CPT/HCPCS: 36415; 71046-TC-FY; 80053; 81003; 82010; 82550; 82803; 83605; 83735; 84484; 85025; 85610; 85730; 86850; 86900; 86901; 87086; 87804; 93005; 93010; 99285-25; C9803; U0003; U0005

== ENCOUNTER 2021-06-07 18:29 | Emergency (ER) | payer OTHER ==
[2021-06-07 19:09] VITALS: TEMP 99.6; BMI 32.5
[2021-06-07] MEDS ORDERED: ACETAMINOPHEN 1000 MG/100 ML BAG IVPB ONE (19:49)
[2021-06-07] MEDS ORDERED: SODIUM CHLORIDE 0.9% 500 ML INFUS.BAG IV ONE (19:49)
[2021-06-07] MEDS ORDERED: ONDANSETRON *ODT* 4 MG TABLET SL ONE (19:49)
[2021-06-07] MEDS ORDERED: FAMOTIDINE 20 MG/50 ML IVPB 20 MG/50 ML MG IVPB ONE ×2 (19:49→20:12)
[2021-06-07] MEDS ORDERED: ONDANSETRON *ODT* 4 MG TABLET ONE (20:12)
[2021-06-07] MEDS ORDERED: ACETAMINOPHEN INJECTION 100 ML IVPB ONE (20:12)
[2021-06-07 20:42] LABS: BASO % 0.8 % (0-2.0); EOS % 0.8 % (0-4.5); HEMATOCRIT 37.8 % (35.4-49); HEMOGLOBIN 12.8 GM/dL (11.7-16.9); LYMPH % 9.8 % (8-40); MCH 28.6 pg (25.7-33.7); MCHC 33.9 g/dl (32.0-35.9); MEAN CELL VOLUME 84.3 fl (80-96); MEAN PLT VOLUME 8.1 fl (7.5-11.1); MONO % 5.4 % (3.8-10.2); NEUT % 83.2 % (42.8-82.8); PLATELET COUNT 260 10^3/uL (134-434); RBC 4.48 M/mm3 (4.00-5.60); RDW 13.8 % (11.9-15.9)
[2021-06-07 21:02] LABS: CALCIUM 9.3 mg/dL (8.5-10.1)
[2021-06-07 21:03] LABS: ALBUMIN 3.6 g/dl (3.4-5.0); BLOOD UREA NITROGEN 7.2 mg/dL (7-18)
[2021-06-07 21:06] LABS: CREATININE 0.7 mg/dL (0.55-1.3)
[2021-06-07 21:08] LABS: BILIRUBIN,TOTAL 0.4 mg/dL (0.2-1); TOT PROT 7.2 g/dl (6.4-8.2)
[2021-06-07 22:13] VITALS: BP 136/63; PULSE 70
== END 2021-06-07 23:25 | disposition home or self-care (01) ==
LOC: JER 18:29
PROC: 3E033GC Introduction of Other Therapeutic Substance into Peripheral Vein, Percutaneous Approach (ICD-10-PCS; principal; 2021-06-07)
DX: T40.2X1A Poisoning by other opioids, accidental (unintentional), initial encounter (principal); F11.10 Opioid abuse, uncomplicated
CPT/HCPCS: 36415; 74177-TC; 80053; 85025; 93005; 93010; 99285-25; Q0162; Q9967

== ENCOUNTER 2022-06-21 10:36 | Emergency (ER) | payer OTHER ==
[2022-06-21 10:49] VITALS: BP 138/86; PULSE 82; RESP 18; TEMP 97.8; BMI 33.2
[2022-06-21] MEDS ORDERED: SODIUM CHLORIDE 0.9% 500 ML INFUS.BAG IV ONE (11:32)
[2022-06-21] MEDS ORDERED: ONDANSETRON 4 MG/2 ML VIAL IVPUSH ONE (11:32)
[2022-06-21] MEDS ORDERED: ONDANSETRON 4 MG/2 ML VIAL ONE (12:04)
[2022-06-21 12:19] LABS: BASO % 1.3 % (0-2.0); EOS % 2.8 % (0-4.5); HEMATOCRIT 36.8 % (35.4-49); HEMOGLOBIN 12.9 GM/dL (11.7-16.9); LYMPH % 10.8 % (8-40); MCH 28.6 pg (25.7-33.7); MEAN CELL VOLUME 81.8 fl (80-96); MONO % 7.6 % (3.8-10.2); NEUT % 77.5 % (42.8-82.8); PLATELET COUNT 254 10^3/uL (134-434); RDW 13.5 % (11.9-15.9); WHITE BLOOD COUNT 10.5 K/mm3 (4.0-10.0)
[2022-06-21 12:48] LABS: CALCIUM 9.1 mg/dL (8.5-10.1)
[2022-06-21 12:49] LABS: ALBUMIN 3.4 g/dl (3.4-5.0)
[2022-06-21 12:52] LABS: CREATININE 0.7 mg/dL (0.55-1.3)
[2022-06-21 12:53] LABS: BILIRUBIN,TOTAL 0.3 mg/dL (0.2-1); TOT PROT 7.3 g/dl (6.4-8.2)
== END 2022-06-21 14:39 | disposition home or self-care (01) ==
LOC: JER 10:36
PROC: 3E0333Z Introduction of Anti-inflammatory into Peripheral Vein, Percutaneous Approach (ICD-10-PCS; principal; 2022-06-21)
DX: R11.2 Nausea with vomiting, unspecified (principal)
CPT/HCPCS: 36415; 80053; 83690; 84484; 85025; 93005; 93010; 99284-25

== ENCOUNTER 2022-08-29 06:20 | Inpatient (IN) | payer OTHER ==
[2022-08-29 06:31] VITALS: BMI 31.0
[2022-08-29] MEDS ORDERED: ONDANSETRON 4 MG/2 ML VIAL IVPUSH ONE ×3 (06:48→13:54)
[2022-08-29] MEDS ORDERED: ONDANSETRON 4 MG/2 ML VIAL ONE ×3 (07:28→14:05)
[2022-08-29] MEDS ORDERED: FAMOTIDINE 20 MG/50 ML IVPB 20 MG/50 ML MG IVPB ONE ×2 (07:43→07:45)
[2022-08-29] MEDS ORDERED: SODIUM CHLORIDE 1,000 ML IV STA ×2 (07:43→11:18)
[2022-08-29] MEDS ORDERED: ACETAMINOPHEN 1000 MG/100 ML BAG IVPB ONE ×2 (07:43→13:55)
[2022-08-29] MEDS ORDERED: ACETAMINOPHEN INJECTION 100 ML IVPB ONE ×2 (07:45→14:04)
[2022-08-29 08:03] LABS: BASO % 1.2 % (0-2.0); EOS % 1.3 % (0-4.5); HEMATOCRIT 42.7 % (35.4-49); HEMOGLOBIN 14.2 GM/dL (11.7-16.9); LYMPH % 13.1 % (8-40); MCH 28.1 pg (25.7-33.7); MCHC 33.2 g/dl (32.0-35.9); MEAN CELL VOLUME 84.6 fl (80-96); MEAN PLT VOLUME 9.4 fl (7.5-11.1); MONO % 6.4 % (3.8-10.2); PLATELET COUNT 267 10^3/uL (134-434); RBC 5.05 M/mm3 (4.00-5.60); RDW 13.7 % (11.9-15.9)
[2022-08-29 08:25] LABS: POTASSIUM 3.5 mmol/L (3.5-5.1)
[2022-08-29 08:26] LABS: CALCIUM 9.4 mg/dL (8.5-10.1)
[2022-08-29 08:27] LABS: ALBUMIN 3.5 g/dl (3.4-5.0); BLOOD UREA NITROGEN 4.5 mg/dL (7-18)
[2022-08-29 08:30] LABS: CREATININE 0.8 mg/dL (0.55-1.3)
[2022-08-29 08:33] LABS: BILIRUBIN,TOTAL 0.3 mg/dL (0.2-1); TOT PROT 7.3 g/dl (6.4-8.2)
[2022-08-29] MEDS ORDERED: METOCLOPRAMIDE HCL INJECTION 10 MG/2 ML VIAL IVPUSH ONE (11:21)
[2022-08-29 11:22] LABS: PH,URINE 7.5 (5.0-8.0); URINE APPEARANCE CLEAR; URINE BILIRUBIN NEGATIVE (NEGATIVE); URINE COLOR YELLOW; URINE GLUCOSE (UA) 3+ (NEGATIVE); URINE KETONE 1+ (NEGATIVE); URINE LEUK ESTERASE NEGATIVE (NEGATIVE); URINE NITRITE NEGATIVE (NEGATIVE); URINE PROTEIN NEGATIVE (NEGATIVE); URINE UROBILINOGEN 0.2 mg/dL (0.2-1.0)
[2022-08-29] MEDS ORDERED: METOCLOPRAMIDE HCL INJECTION 10 MG/2 ML VIAL ONE ×2 (11:22→16:51)
[2022-08-29] MEDS ORDERED: cloNIDine HCL 0.1 MG TABLET PO PRN (13:43)
[2022-08-29] MEDS ORDERED: methaDONE HCL 10 MG TABLET PO ONE (14:00)
[2022-08-29] MEDS: LACTATED RINGERS SOLUTION 1,000 ML IV SCH (14:03)
[2022-08-29] MEDS ORDERED: methaDONE HCL 10 MG TABLET ONE (15:00)
[2022-08-29] MEDS ORDERED: LIDOCAINE HCL 2% JELLY 6 ML TP ONE (16:43)
[2022-08-29] MEDS ORDERED: METOCLOPRAMIDE HCL 10 MG TABLET (FP) PO ONE (16:49)
[2022-08-29] MEDS: METOCLOPRAMIDE HCL INJECTION 10 MG/2 ML VIAL IVPUSH PRN ×2 (16:50→22:47)
[2022-08-29] MEDS ORDERED: PANTOPRAZOLE SODIUM 40 MG VIAL ONE (16:51)
[2022-08-29] MEDS: PANTOPRAZOLE SODIUM 40 MG VIAL IVPUSH SCH (17:00)
[2022-08-29] MEDS: LORazepam 2 MG/ML SDV VIAL IVPUSH PRN (17:35)
[2022-08-29] MEDS ORDERED: LORazepam 2 MG/ML SDV VIAL IVPUSH ONE (18:22)
[2022-08-29] MEDS: INSULIN SLIDING SCALE (NOVOLOG) 1 VIAL SQ SCH ×2 (18:25→21:19)
[2022-08-30 00:08] LABS: OPIATES, URI NEGATIVE (NEGATIVE); PHENCYCLIDINE,URINE NEGATIVE (NEGATIVE); URINE AMPHETAMINES NEGATIVE (NEGATIVE); URINE BARBITURATES NEGATIVE (NEGATIVE)
[2022-08-30 00:09] LABS: URINE BENZODIAZEPINES NEGATIVE (NEGATIVE)
[2022-08-30 00:14] LABS: COCAINE, UR POSITIVE (NEGATIVE); METHADONE, UR POSITIVE (NEGATIVE)
[2022-08-30] MEDS: LACTATED RINGERS SOLUTION 1,000 ML IV SCH ×2 (02:30→15:33)
[2022-08-30] MEDS: LORazepam 2 MG/ML SDV VIAL IVPUSH PRN ×2 (04:41→23:40)
[2022-08-30] MEDS: METOCLOPRAMIDE HCL INJECTION 10 MG/2 ML VIAL IVPUSH PRN (05:26)
[2022-08-30] MEDS: INSULIN SLIDING SCALE (NOVOLOG) 1 VIAL SQ SCH ×4 (06:03→23:34)
[2022-08-30] MEDS ORDERED: INSULIN (LEVEMIR) 100 UNITS/ML UNITS SQ ONE (08:10)
[2022-08-30] MEDS ORDERED: ONDANSETRON 4 MG/2 ML VIAL IVPUSH PRN (08:13)
[2022-08-30] MEDS: methaDONE HCL 40 MG DISPERSABLE TABLET PO SCH (08:44)
[2022-08-30 09:52] LABS: BASO % 0.6 % (0-2.0); HEMATOCRIT 39.2 % (35.4-49); LYMPH % 13.7 % (8-40); MCH 27.6 pg (25.7-33.7); MCHC 33.1 g/dl (32.0-35.9); MEAN CELL VOLUME 83.4 fl (80-96); MEAN PLT VOLUME 9.1 fl (7.5-11.1); MONO % 9.3 % (3.8-10.2); NEUT % 76.4 % (42.8-82.8); PLATELET COUNT 264 10^3/uL (134-434); WHITE BLOOD COUNT 12.9 K/mm3 (4.0-10.0)
[2022-08-30 10:10] LABS: POTASSIUM 3.5 mmol/L (3.5-5.1)
[2022-08-30 10:14] LABS: BLOOD UREA NITROGEN 5.9 mg/dL (7-18); CALCIUM 9.1 mg/dL (8.5-10.1)
[2022-08-30 10:15] LABS: ALBUMIN 3.1 g/dl (3.4-5.0); MAGNESIUM 1.8 mg/dL (1.8-2.4)
[2022-08-30 10:17] LABS: CREATININE 0.6 mg/dL (0.55-1.3); PHOSPHOROUS 2.9 mg/dL (2.5-4.9)
[2022-08-30 10:19] LABS: BILIRUBIN,TOTAL 0.6 mg/dL (0.2-1); TOT PROT 6.4 g/dl (6.4-8.2)
[2022-08-30] MEDS: PANTOPRAZOLE SODIUM 40 MG VIAL IVPUSH SCH (10:28)
[2022-08-30] MEDS: NICOTINE 14 MG/24 HOURS TOPICAL PATCH TD SCH (10:29)
[2022-08-30] MEDS: ENOXAPARIN NA (PORCINE) 40 MG/0.4 ML DISP.SYRIN SQ SCH (10:29)
[2022-08-30] MEDS: METOCLOPRAMIDE HCL INJECTION 10 MG/2 ML VIAL IVPUSH SCH ×2 (15:28→19:24)
[2022-08-31] MEDS: METOCLOPRAMIDE HCL INJECTION 10 MG/2 ML VIAL IVPUSH SCH ×3 (03:58→18:41)
[2022-08-31] MEDS: methaDONE HCL 40 MG DISPERSABLE TABLET PO SCH (06:16)
[2022-08-31] MEDS: INSULIN SLIDING SCALE (NOVOLOG) 1 VIAL SQ SCH ×4 (06:36→21:07)
[2022-08-31 09:51] LABS: BASO % 1.4 % (0-2.0); EOS % 0.1 % (0-4.5); HEMATOCRIT 40.8 % (35.4-49); HEMOGLOBIN 13.4 GM/dL (11.7-16.9); LYMPH % 12.7 % (8-40); MCH 27.3 pg (25.7-33.7); MCHC 32.8 g/dl (32.0-35.9); MEAN CELL VOLUME 83.4 fl (80-96); MEAN PLT VOLUME 9.2 fl (7.5-11.1); MONO % 6.8 % (3.8-10.2); PLATELET COUNT 276 10^3/uL (134-434); RBC 4.89 M/mm3 (4.00-5.60); RDW 13.7 % (11.9-15.9); WHITE BLOOD COUNT 11.9 K/mm3 (4.0-10.0)
[2022-08-31] MEDS ORDERED: methaDONE HCL 10 MG TABLET PO ONE (10:00)
[2022-08-31 10:04] LABS: BLOOD UREA NITROGEN 4.6 mg/dL (7-18); CALCIUM 9.3 mg/dL (8.5-10.1)
[2022-08-31 10:07] LABS: CREATININE 0.7 mg/dL (0.55-1.3); PHOSPHOROUS 2.5 mg/dL (2.5-4.9)
[2022-08-31 10:09] LABS: BILIRUBIN,TOTAL 0.6 mg/dL (0.2-1); TOT PROT 6.7 g/dl (6.4-8.2)
[2022-08-31] MEDS: ENOXAPARIN NA (PORCINE) 40 MG/0.4 ML DISP.SYRIN SQ SCH (10:39)
[2022-08-31] MEDS: NICOTINE 14 MG/24 HOURS TOPICAL PATCH TD SCH (10:39)
[2022-08-31] MEDS: INSULIN (LEVEMIR) 100 UNITS/ML UNITS SQ SCH (10:40)
[2022-08-31] MEDS: PANTOPRAZOLE SODIUM 40 MG VIAL IVPUSH SCH (10:42)
[2022-08-31] MEDS: LORazepam 2 MG/ML SDV VIAL IVPUSH PRN ×3 (10:54→21:46)
[2022-09-01] MEDS: METOCLOPRAMIDE HCL INJECTION 10 MG/2 ML VIAL IVPUSH SCH ×2 (02:05→10:00)
[2022-09-01] MEDS: INSULIN SLIDING SCALE (NOVOLOG) 1 VIAL SQ SCH ×2 (06:12→11:04)
[2022-09-01] MEDS: methaDONE HCL 40 MG DISPERSABLE TABLET PO SCH (06:20)
[2022-09-01] MEDS: INSULIN (LEVEMIR) 100 UNITS/ML UNITS SQ SCH (06:21)
[2022-09-01] MEDS: PANTOPRAZOLE SODIUM 40 MG VIAL IVPUSH SCH (09:59)
[2022-09-01] MEDS: NICOTINE 14 MG/24 HOURS TOPICAL PATCH TD SCH ×2 (09:59→10:45)
[2022-09-01] MEDS: ENOXAPARIN NA (PORCINE) 40 MG/0.4 ML DISP.SYRIN SQ SCH (10:00)
[2022-09-01] MEDS: LORazepam 2 MG/ML SDV VIAL IVPUSH PRN (10:53)
[2022-09-01 11:25] VITALS: RESP 16
[2022-09-01 11:26] VITALS: BP 133/80; PULSE 64; TEMP 98.3
[2022-09-02] MEDS ORDERED: methaDONE HCL 10 MG TABLET PO ONE (10:00)
[2022-09-09 18:07] LABS: OXYCODONE BLOOD Negative ng/mL (Cutoff:5); PCP BLOOD Negative ng/mL (Cutoff:8)
== END 2022-09-01 01:30 | disposition other institution (70) | DRG 48 ==
LOC: JER 06:20 → JERBED 13:30 → J5S 19:15
PROVIDERS: ADMIT Internal Medicine; ATTEND Internal Medicine
PROC: HZ91ZZZ Pharmacotherapy for Substance Abuse Treatment, Methadone Maintenance (ICD-10-PCS; principal; 2022-08-29)
PROC: HZ81ZZZ Medication Management for Substance Abuse Treatment, Methadone Maintenance (ICD-10-PCS; 2022-08-29)
DX: E10.43 Type 1 diabetes mellitus with diabetic autonomic (poly)neuropathy (principal); I10 Essential (primary) hypertension; F11.23 Opioid dependence with withdrawal; F17.210 Nicotine dependence, cigarettes, uncomplicated; K31.9 Disease of stomach and duodenum, unspecified; R11.2 Nausea with vomiting, unspecified; K31.84 Gastroparesis
CPT/HCPCS: 0241U-QW; 36415; 71045-TC-FY; 71046-TC-FY; 74018-TC-FY; 74177-TC; 76705-TC; 80053; 80307; 81003; 82962; 83036; 83690; 83735; 84100; 84484; 85025; 86850; 86900; 86901; 93005; 93010; 99284-25; 99285-25; Q9967

== ENCOUNTER 2022-09-01 15:42 | Inpatient (IN) | payer OTHER ==
[2022-09-01 16:27] VITALS: BMI 32.5
[2022-09-01] MEDS ORDERED: LOPERAMIDE HCL 2 MG CAPSULE PO PRN (18:17)
[2022-09-01] MEDS ORDERED: NALOXONE HCL 0.4 MG/ML VIAL IVPUSH PRN (18:17)
[2022-09-01] MEDS ORDERED: MAG HYDROX/AL HYDROX/SIMETH 30 ML UNIT-DOSE CUP PO PRN (18:17)
[2022-09-01] MEDS ORDERED: P-EPHED 60MG/TRIPROLIDI 2.5MG TABLET PO PRN (18:17)
[2022-09-01] MEDS ORDERED: MAGNESIUM HYDROX 2400MG/30ML ORAL SUSPENSION 30 ML CUP PO PRN (18:17)
[2022-09-01] MEDS ORDERED: NICOTINE POLACRILEX 2 MG GUM BUC PRN (18:17)
[2022-09-01] MEDS ORDERED: BENZOCAINE/MENTHOL (CHLORASEPTIC ) LOZENGE MM PRN (18:17)
[2022-09-01] MEDS ORDERED: BENZONATATE 200 MG CAPSULE PO PRN (18:17)
[2022-09-01] MEDS ORDERED: AMMONIUM LACTATE 12% LOTION 225 GM BOTTLE TP PRN (18:17)
[2022-09-01] MEDS ORDERED: COLLOIDAL OATMEAL 1 BAR EACH TP PRN (18:17)
[2022-09-01] MEDS ORDERED: guaiFENesin 600 MG TABLET.ER (FP) PO PRN (18:17)
[2022-09-01] MEDS ORDERED: NALOXONE HCL (KLOXXADO) 8 MG SPRAY NS PRN (18:17)
[2022-09-01] MEDS ORDERED: ACETAMINOPHEN 325 MG TABLET (FP) PO PRN (18:17)
[2022-09-01] MEDS ORDERED: POLYETHYLENE GLYCOL (HEALTHYLAX) 3350 17 GM PACKET PO PRN (18:17)
[2022-09-01] MEDS ORDERED: ONDANSETRON *ODT* 4 MG TABLET SL PRN (18:23)
[2022-09-01] MEDS ORDERED: INSULIN (NOVOLOG) ASPART 100 UNITS/ML 10ML VIAL ONE (19:27)
[2022-09-01] MEDS: INSULIN SLIDING SCALE (NOVOLOG) 1 VIAL SQ SCH ×2 (19:35→21:23)
[2022-09-01] MEDS: THIAMINE HCL 100 MG TABLET (FP) PO SCH (21:20)
[2022-09-01] MEDS: METOCLOPRAMIDE HCL 10 MG TABLET (FP) PO SCH (21:21)
[2022-09-01] MEDS: hydrOXYzine PAMOATE 25 MG CAPSULE (FP) PO PRN (21:21)
[2022-09-01] MEDS ORDERED: MELATONIN 5 MG TABLETS PO SCH (22:00)
[2022-09-02] MEDS: methaDONE HCL 40 MG DISPERSABLE TABLET PO SCH (06:13)
[2022-09-02] MEDS: INSULIN SLIDING SCALE (NOVOLOG) 1 VIAL SQ SCH ×4 (06:15→21:03)
[2022-09-02] MEDS: METOCLOPRAMIDE HCL 10 MG TABLET (FP) PO SCH ×2 (07:22→21:01)
[2022-09-02] MEDS: PRENATAL VITAMINS W/ FOLIC ACID TABLET (FP) PO SCH (10:37)
[2022-09-02] MEDS: hydrOXYzine PAMOATE 25 MG CAPSULE (FP) PO PRN ×2 (10:38→18:37)
[2022-09-02] MEDS: THIAMINE HCL 100 MG TABLET (FP) PO SCH (21:01)
[2022-09-02] MEDS: SUVOREXANT 10 MG TABLET PO PRN (21:02)
[2022-09-03] MEDS: INSULIN SLIDING SCALE (NOVOLOG) 1 VIAL SQ SCH ×4 (06:11→21:13)
[2022-09-03] MEDS ORDERED: INSULIN SLIDING SCALE (NOVOLOG) 1 VIAL SQ ONE (06:11)
[2022-09-03] MEDS: hydrOXYzine PAMOATE 25 MG CAPSULE (FP) PO PRN ×2 (06:12→16:02)
[2022-09-03] MEDS: METOCLOPRAMIDE HCL 10 MG TABLET (FP) PO SCH ×2 (06:12→21:12)
[2022-09-03] MEDS: methaDONE HCL 40 MG DISPERSABLE TABLET PO SCH (06:13)
[2022-09-03] MEDS: PRENATAL VITAMINS W/ FOLIC ACID TABLET (FP) PO SCH (10:30)
[2022-09-03] MEDS: SUVOREXANT 10 MG TABLET PO PRN (21:12)
[2022-09-03] MEDS: THIAMINE HCL 100 MG TABLET (FP) PO SCH (21:12)
[2022-09-04] MEDS: hydrOXYzine PAMOATE 25 MG CAPSULE (FP) PO PRN (03:08)
[2022-09-04] MEDS: METOCLOPRAMIDE HCL 10 MG TABLET (FP) PO SCH ×2 (06:24→21:03)
[2022-09-04] MEDS: methaDONE HCL 40 MG DISPERSABLE TABLET PO SCH (06:24)
[2022-09-04] MEDS: INSULIN SLIDING SCALE (NOVOLOG) 1 VIAL SQ SCH ×4 (06:30→21:04)
[2022-09-04] MEDS: PRENATAL VITAMINS W/ FOLIC ACID TABLET (FP) PO SCH (10:09)
[2022-09-04] MEDS ORDERED: INSULIN SLIDING SCALE (NOVOLOG) 1 VIAL SQ ONE (11:39)
[2022-09-04] MEDS: THIAMINE HCL 100 MG TABLET (FP) PO SCH (21:03)
[2022-09-04] MEDS: SUVOREXANT 10 MG TABLET PO PRN (21:03)
[2022-09-05] MEDS: hydrOXYzine PAMOATE 25 MG CAPSULE (FP) PO PRN ×3 (01:51→21:36)
[2022-09-05] MEDS: methaDONE HCL 40 MG DISPERSABLE TABLET PO SCH (05:55)
[2022-09-05] MEDS: METOCLOPRAMIDE HCL 10 MG TABLET (FP) PO SCH ×2 (06:01→21:35)
[2022-09-05] MEDS ORDERED: INSULIN SLIDING SCALE (NOVOLOG) 1 VIAL SQ ONE (07:05)
[2022-09-05] MEDS: INSULIN SLIDING SCALE (NOVOLOG) 1 VIAL SQ SCH ×4 (07:11→21:37)
[2022-09-05] MEDS: PRENATAL VITAMINS W/ FOLIC ACID TABLET (FP) PO SCH (09:54)
[2022-09-05] MEDS: SUVOREXANT 10 MG TABLET PO PRN (21:35)
[2022-09-05] MEDS: THIAMINE HCL 100 MG TABLET (FP) PO SCH (21:36)
[2022-09-06] MEDS: INSULIN SLIDING SCALE (NOVOLOG) 1 VIAL SQ SCH ×4 (06:26→21:45)
[2022-09-06] MEDS: METOCLOPRAMIDE HCL 10 MG TABLET (FP) PO SCH (06:26)
[2022-09-06] MEDS: methaDONE HCL 40 MG DISPERSABLE TABLET PO SCH (06:26)
[2022-09-06] MEDS: PRENATAL VITAMINS W/ FOLIC ACID TABLET (FP) PO SCH (10:04)
[2022-09-06] MEDS: THIAMINE HCL 100 MG TABLET (FP) PO SCH (21:40)
[2022-09-06] MEDS: SUVOREXANT 10 MG TABLET PO PRN (21:41)
[2022-09-06] MEDS: hydrOXYzine PAMOATE 25 MG CAPSULE (FP) PO PRN (21:41)
[2022-09-07] MEDS: methaDONE HCL 40 MG DISPERSABLE TABLET PO SCH (06:26)
[2022-09-07] MEDS: hydrOXYzine PAMOATE 25 MG CAPSULE (FP) PO PRN ×3 (06:28→21:05)
[2022-09-07] MEDS: INSULIN SLIDING SCALE (NOVOLOG) 1 VIAL SQ SCH ×4 (06:28→22:09)
[2022-09-07] MEDS: PRENATAL VITAMINS W/ FOLIC ACID TABLET (FP) PO SCH (10:13)
[2022-09-07] MEDS ORDERED: INSULIN SLIDING SCALE (NOVOLOG) 1 VIAL SQ ONE (11:42)
[2022-09-07] MEDS: IBUPROFEN 600 MG TABLET (FP) PO PRN (15:36)
[2022-09-07] MEDS: THIAMINE HCL 100 MG TABLET (FP) PO SCH (21:02)
[2022-09-07] MEDS: SUVOREXANT 10 MG TABLET PO PRN (21:04)
[2022-09-08] MEDS: IBUPROFEN 600 MG TABLET (FP) PO PRN ×2 (06:26→13:52)
[2022-09-08] MEDS: methaDONE HCL 40 MG DISPERSABLE TABLET PO SCH (06:27)
[2022-09-08] MEDS: INSULIN SLIDING SCALE (NOVOLOG) 1 VIAL SQ SCH ×4 (06:32→23:31)
[2022-09-08] MEDS: PRENATAL VITAMINS W/ FOLIC ACID TABLET (FP) PO SCH (10:02)
[2022-09-08] MEDS: hydrOXYzine PAMOATE 25 MG CAPSULE (FP) PO PRN ×2 (10:03→21:28)
[2022-09-08] MEDS: NICOTINE 10 MG CARTRIDGE (INHALER) IH SCH (11:06)
[2022-09-08] MEDS: metFORMIN HCL 500 MG TABLET (FP) PO SCH ×2 (12:32→17:05)
[2022-09-08] MEDS: SUVOREXANT 10 MG TABLET PO PRN (21:25)
[2022-09-08] MEDS: THIAMINE HCL 100 MG TABLET (FP) PO SCH (21:26)
[2022-09-08] MEDS: INSULIN (LEVEMIR) 100 UNITS/ML UNITS SQ SCH (21:28)
[2022-09-09] MEDS: methaDONE HCL 40 MG DISPERSABLE TABLET PO SCH (06:29)
[2022-09-09] MEDS: metFORMIN HCL 500 MG TABLET (FP) PO SCH ×2 (06:30→16:40)
[2022-09-09] MEDS: INSULIN SLIDING SCALE (NOVOLOG) 1 VIAL SQ SCH ×4 (06:31→21:42)
[2022-09-09] MEDS: hydrOXYzine PAMOATE 25 MG CAPSULE (FP) PO PRN ×2 (06:31→21:01)
[2022-09-09] MEDS: PRENATAL VITAMINS W/ FOLIC ACID TABLET (FP) PO SCH (09:13)
[2022-09-09] MEDS: NICOTINE 10 MG CARTRIDGE (INHALER) IH SCH (09:14)
[2022-09-09] MEDS ORDERED: METHYL SALICYLATE/MENTHOL OINT 30 GM TUBE TP PRN (11:03)
[2022-09-09] MEDS: LIDOCAINE 5% TOPICAL PATCH TP SCH (11:48)
[2022-09-09] MEDS ORDERED: INSULIN SLIDING SCALE (NOVOLOG) 1 VIAL SQ ONE (11:52)
[2022-09-09] MEDS: SUVOREXANT 10 MG TABLET PO PRN (21:01)
[2022-09-09] MEDS: THIAMINE HCL 100 MG TABLET (FP) PO SCH (21:01)
[2022-09-09] MEDS: LIDOCAINE PATCH REMOVAL MC SCH (21:41)
[2022-09-09] MEDS: INSULIN (LEVEMIR) 100 UNITS/ML UNITS SQ SCH (21:41)
[2022-09-10] MEDS: metFORMIN HCL 500 MG TABLET (FP) PO SCH ×2 (06:06→16:42)
[2022-09-10] MEDS: methaDONE HCL 40 MG DISPERSABLE TABLET PO SCH (06:07)
[2022-09-10] MEDS: hydrOXYzine PAMOATE 25 MG CAPSULE (FP) PO PRN ×2 (06:09→21:31)
[2022-09-10] MEDS ORDERED: INSULIN SLIDING SCALE (NOVOLOG) 1 VIAL SQ ONE (06:13)
[2022-09-10] MEDS: INSULIN SLIDING SCALE (NOVOLOG) 1 VIAL SQ SCH ×4 (06:14→21:32)
[2022-09-10] MEDS: PRENATAL VITAMINS W/ FOLIC ACID TABLET (FP) PO SCH (09:55)
[2022-09-10] MEDS: LIDOCAINE 5% TOPICAL PATCH TP SCH (09:55)
[2022-09-10] MEDS: NICOTINE 10 MG CARTRIDGE (INHALER) IH SCH (09:55)
[2022-09-10] MEDS: IBUPROFEN 400 MG TABLET (FP) PO PRN (18:45)
[2022-09-10] MEDS: SUVOREXANT 10 MG TABLET PO PRN (21:30)
[2022-09-10] MEDS: THIAMINE HCL 100 MG TABLET (FP) PO SCH (21:31)
[2022-09-10] MEDS: INSULIN (LEVEMIR) 100 UNITS/ML UNITS SQ SCH (21:32)
[2022-09-10] MEDS: LIDOCAINE PATCH REMOVAL MC SCH (21:32)
[2022-09-11] MEDS: INSULIN SLIDING SCALE (NOVOLOG) 1 VIAL SQ SCH ×4 (06:13→21:05)
[2022-09-11] MEDS: hydrOXYzine PAMOATE 25 MG CAPSULE (FP) PO PRN ×2 (06:14→21:04)
[2022-09-11] MEDS: metFORMIN HCL 500 MG TABLET (FP) PO SCH ×2 (06:14→16:34)
[2022-09-11] MEDS: methaDONE HCL 40 MG DISPERSABLE TABLET PO SCH (06:14)
[2022-09-11] MEDS: PRENATAL VITAMINS W/ FOLIC ACID TABLET (FP) PO SCH (09:03)
[2022-09-11] MEDS: NICOTINE 10 MG CARTRIDGE (INHALER) IH SCH (09:03)
[2022-09-11] MEDS: LIDOCAINE 5% TOPICAL PATCH TP SCH (09:03)
[2022-09-11] MEDS ORDERED: INSULIN SLIDING SCALE (NOVOLOG) 1 VIAL SQ ONE (11:38)
[2022-09-11] MEDS: SUVOREXANT 10 MG TABLET PO PRN (21:03)
[2022-09-11] MEDS: THIAMINE HCL 100 MG TABLET (FP) PO SCH (21:03)
[2022-09-11] MEDS: INSULIN (LEVEMIR) 100 UNITS/ML UNITS SQ SCH (21:05)
[2022-09-11] MEDS: LIDOCAINE PATCH REMOVAL MC SCH (21:05)
[2022-09-12] MEDS: methaDONE HCL 40 MG DISPERSABLE TABLET PO SCH (06:17)
[2022-09-12] MEDS: INSULIN SLIDING SCALE (NOVOLOG) 1 VIAL SQ SCH ×4 (06:18→22:43)
[2022-09-12] MEDS: metFORMIN HCL 500 MG TABLET (FP) PO SCH ×2 (06:18→16:54)
[2022-09-12] MEDS: hydrOXYzine PAMOATE 25 MG CAPSULE (FP) PO PRN ×2 (06:20→21:53)
[2022-09-12] MEDS: NICOTINE 10 MG CARTRIDGE (INHALER) IH SCH (09:50)
[2022-09-12] MEDS: PRENATAL VITAMINS W/ FOLIC ACID TABLET (FP) PO SCH (09:50)
[2022-09-12] MEDS: LIDOCAINE 5% TOPICAL PATCH TP SCH (09:50)
[2022-09-12] MEDS: LIDOCAINE PATCH REMOVAL MC SCH (21:51)
[2022-09-12] MEDS: SUVOREXANT 10 MG TABLET PO PRN (21:52)
[2022-09-12] MEDS: IBUPROFEN 600 MG TABLET (FP) PO PRN (21:53)
[2022-09-12] MEDS: THIAMINE HCL 100 MG TABLET (FP) PO SCH (21:53)
[2022-09-12] MEDS: INSULIN (LEVEMIR) 100 UNITS/ML UNITS SQ SCH (21:55)
[2022-09-13] MEDS: metFORMIN HCL 500 MG TABLET (FP) PO SCH ×2 (06:45→16:50)
[2022-09-13] MEDS: methaDONE HCL 40 MG DISPERSABLE TABLET PO SCH (06:45)
[2022-09-13] MEDS: hydrOXYzine PAMOATE 25 MG CAPSULE (FP) PO PRN ×2 (06:46→10:04)
[2022-09-13] MEDS: INSULIN SLIDING SCALE (NOVOLOG) 1 VIAL SQ SCH ×4 (06:50→21:07)
[2022-09-13] MEDS: NICOTINE 10 MG CARTRIDGE (INHALER) IH SCH (10:03)
[2022-09-13] MEDS: LIDOCAINE 5% TOPICAL PATCH TP SCH (10:03)
[2022-09-13] MEDS: PRENATAL VITAMINS W/ FOLIC ACID TABLET (FP) PO SCH (10:03)
[2022-09-13] MEDS: SUVOREXANT 10 MG TABLET PO PRN (21:03)
[2022-09-13] MEDS: THIAMINE HCL 100 MG TABLET (FP) PO SCH (21:05)
[2022-09-13] MEDS: INSULIN (LEVEMIR) 100 UNITS/ML UNITS SQ SCH (21:05)
[2022-09-13] MEDS: LIDOCAINE PATCH REMOVAL MC SCH (21:06)
[2022-09-14] MEDS: methaDONE HCL 40 MG DISPERSABLE TABLET PO SCH (06:14)
[2022-09-14] MEDS: metFORMIN HCL 500 MG TABLET (FP) PO SCH ×2 (06:14→16:58)
[2022-09-14] MEDS: INSULIN SLIDING SCALE (NOVOLOG) 1 VIAL SQ SCH ×4 (06:15→21:53)
[2022-09-14] MEDS: hydrOXYzine PAMOATE 25 MG CAPSULE (FP) PO PRN ×3 (06:18→21:52)
[2022-09-14] MEDS: NICOTINE 10 MG CARTRIDGE (INHALER) IH SCH (09:37)
[2022-09-14] MEDS: IBUPROFEN 400 MG TABLET (FP) PO PRN (09:37)
[2022-09-14] MEDS: PRENATAL VITAMINS W/ FOLIC ACID TABLET (FP) PO SCH (09:37)
[2022-09-14] MEDS: LIDOCAINE 5% TOPICAL PATCH TP SCH (09:38)
[2022-09-14] MEDS: THIAMINE HCL 100 MG TABLET (FP) PO SCH (21:52)
[2022-09-14] MEDS: LIDOCAINE PATCH REMOVAL MC SCH (21:53)
[2022-09-14] MEDS: INSULIN (LEVEMIR) 100 UNITS/ML UNITS SQ SCH (21:53)
[2022-09-14] MEDS ORDERED: SUVOREXANT 10 MG TABLET PO PRN (22:00)
[2022-09-15] MEDS: metFORMIN HCL 500 MG TABLET (FP) PO SCH (06:36)
[2022-09-15] MEDS: INSULIN SLIDING SCALE (NOVOLOG) 1 VIAL SQ SCH (06:36)
[2022-09-15] MEDS: methaDONE HCL 40 MG DISPERSABLE TABLET PO SCH (06:36)
[2022-09-15 07:19] VITALS: TEMP 97.5
[2022-09-15 09:15] VITALS: BP 138/96; PULSE 105; RESP 18
[2022-09-15] MEDS: LIDOCAINE 5% TOPICAL PATCH TP SCH (09:18)
[2022-09-15] MEDS: NICOTINE 10 MG CARTRIDGE (INHALER) IH SCH (09:18)
[2022-09-15] MEDS: PRENATAL VITAMINS W/ FOLIC ACID TABLET (FP) PO SCH (09:18)
== END 2022-09-15 09:33 | disposition home or self-care (01) | DRG 772 ==
LOC: YASAS 15:42 → Y3W 18:25
PROVIDERS: ADMIT Allergy & Immunology; ATTEND Psychiatry & Neurology Pain Medicine
PROC: HZ42ZZZ Group Counseling for Substance Abuse Treatment, Cognitive-Behavioral (ICD-10-PCS; principal; 2022-09-01)
DX: F11.20 Opioid dependence, uncomplicated (principal); F14.20 Cocaine dependence, uncomplicated; F17.210 Nicotine dependence, cigarettes, uncomplicated; F19.282 Other psychoactive substance dependence with psychoactive substance-induced sleep disorder; I10 Essential (primary) hypertension; E10.9 Type 1 diabetes mellitus without complications; Z79.4 Long term (current) use of insulin; E66.9 Obesity, unspecified; Z68.32 Body mass index [BMI] 32.0-32.9, adult
CPT/HCPCS: 82962; 87635; 87811

== ENCOUNTER 2023-03-12 03:06 | Observation (INO) | payer OTHER ==
[2023-03-12 04:46] LABS: BASO % 0.8 % (0-2.0); EOS % 5.3 % (0-4.5); HEMATOCRIT 39.4 % (35.4-49); HEMOGLOBIN 13.1 GM/dL (11.7-16.9); LYMPH % 27.7 % (8-40); MCH 28.7 pg (25.7-33.7); MCHC 33.1 g/dl (32.0-35.9); MEAN CELL VOLUME 86.7 fl (80-96); MEAN PLT VOLUME 8.4 fl (7.5-11.1); MONO % 7.6 % (3.8-10.2); NEUT % 58.6 % (42.8-82.8); PLATELET COUNT 283 10^3/uL (134-434); RBC 4.55 M/mm3 (4.00-5.60); RDW 14.4 % (11.9-15.9); WHITE BLOOD COUNT 10.1 K/mm3 (4.0-10.0)
[2023-03-12] MEDS ORDERED: CLINDAMYCIN HCL 300 MG CAPSULE PO ONE (04:48)
[2023-03-12 05:06] LABS: POTASSIUM 3.9 mmol/L (3.5-5.1)
[2023-03-12] MEDS ORDERED: CLINDAMYCIN HCL 150 MG CAPSULE (FP) ONE (05:07)
[2023-03-12 05:08] LABS: ALBUMIN 3.3 g/dl (3.4-5.0); BLOOD UREA NITROGEN 5.2 mg/dL (7-18); CALCIUM 8.9 mg/dL (8.5-10.1)
[2023-03-12 05:11] LABS: CREATININE 0.6 mg/dL (0.55-1.3)
[2023-03-12 05:13] LABS: BILIRUBIN,TOTAL 0.2 mg/dL (0.2-1); TOT PROT 6.8 g/dl (6.4-8.2)
[2023-03-12 05:46] LABS: ERYTHROCYTE SEDIMENTATION RATE 22 mm/hr (0-10)
[2023-03-12] MEDS ORDERED: ACETAMINOPHEN 1000 MG/100 ML BAG IVPB ONE (05:49)
[2023-03-12] MEDS ORDERED: ACETAMINOPHEN INJECTION 100 ML IVPB ONE (06:03)
[2023-03-12] MEDS ORDERED: methaDONE HCL 40 MG DISPERSABLE TABLET PO SCH (10:00)
[2023-03-12] MEDS ORDERED: VANCOMYCIN/WATER FOR INJ (PEG) 1,000 MG/200 ML BAG IVPB ONE (11:17)
[2023-03-12] MEDS ORDERED: FUROSEMIDE 40 MG/4 ML INJECTABLE VIAL ONE (11:51)
[2023-03-12] MEDS: FUROSEMIDE 40 MG/4 ML INJECTABLE VIAL IVPUSH SCH (12:19)
[2023-03-12] MEDS ORDERED: methaDONE HCL 10 MG TABLET (FOR DETOX USE ONLY) PO ONE (12:41)
[2023-03-12] MEDS: INSULIN ASPART SLIDING SCALE (NOVOLOG) 1 VIAL SQ SCH ×2 (12:48→17:57)
[2023-03-12] MEDS ORDERED: AMPICILLIN NA/SULBACTAM NA 3 GM VIAL ONE ×2 (13:56→18:54)
[2023-03-12] MEDS: AMPICILLIN NA/SULBACTAM NA 3 GM in SODIUM CHLORIDE 100 ML IVPB SCH ×2 (14:14→19:10)
[2023-03-12] MEDS ORDERED: methaDONE HCL 10 MG TABLET PO SCH (14:30)
[2023-03-12] MEDS: methaDONE 80 MG, methaDONE 10 MG PO SCH (14:40)
[2023-03-12] MEDS ORDERED: methaDONE HCL 40 MG DISPERSABLE TABLET ONE (14:41)
[2023-03-12] MEDS ORDERED: methaDONE HCL 10 MG TABLET ONE (14:42)
[2023-03-12] MEDS ORDERED: metFORMIN HCL 500 MG TABLET (FP) ONE (18:54)
[2023-03-12] MEDS: metFORMIN HCL 500 MG TABLET (FP) PO SCH (19:10)
[2023-03-12] MEDS ORDERED: HEPARIN NA (PORCINE) 5,000 UNITS/ML 1ML VIAL ONE (21:57)
[2023-03-12] MEDS ORDERED: INSULIN (LEVEMIR) 100 UNITS/ML UNITS SQ SCH (22:00)
[2023-03-12] MEDS: HEPARIN NA (PORCINE) 5,000 UNITS/ML 1ML VIAL SQ SCH (22:10)
[2023-03-12 23:44] VITALS: RESP 20
[2023-03-13] MEDS: AMPICILLIN NA/SULBACTAM NA 3 GM in SODIUM CHLORIDE 100 ML IVPB SCH ×3 (02:22→09:25)
[2023-03-13] MEDS: methaDONE 80 MG, methaDONE 10 MG PO SCH (06:02)
[2023-03-13] MEDS: metFORMIN HCL 500 MG TABLET (FP) PO SCH (06:02)
[2023-03-13] MEDS: INSULIN ASPART SLIDING SCALE (NOVOLOG) 1 VIAL SQ SCH ×2 (06:03→10:34)
[2023-03-13 07:14] VITALS: BMI 37.8
[2023-03-13] MEDS: HEPARIN NA (PORCINE) 5,000 UNITS/ML 1ML VIAL SQ SCH (09:25)
[2023-03-13] MEDS: FUROSEMIDE 40 MG/4 ML INJECTABLE VIAL IVPUSH SCH (09:25)
[2023-03-13 11:40] VITALS: BP 144/77; PULSE 74; TEMP 98.1
== END 2023-03-13 12:51 | disposition home or self-care (01) ==
LOC: JER 03:06 → JERBED 06:53 → J6S 22:53
PROVIDERS: ADMIT Internal Medicine; ATTEND Internal Medicine
PROC: 3E03329 Introduction of Other Anti-infective into Peripheral Vein, Percutaneous Approach (ICD-10-PCS; principal; 2023-03-12)
PROC: 3E033NZ Introduction of Analgesics, Hypnotics, Sedatives into Peripheral Vein, Percutaneous Approach (ICD-10-PCS; 2023-03-12)
PROC: 3E033GC Introduction of Other Therapeutic Substance into Peripheral Vein, Percutaneous Approach (ICD-10-PCS; 2023-03-12)
PROC: 3E023GC Introduction of Other Therapeutic Substance into Muscle, Percutaneous Approach (ICD-10-PCS; 2023-03-12)
PROC: 3E013VG Introduction of Insulin into Subcutaneous Tissue, Percutaneous Approach (ICD-10-PCS; 2023-03-12)
DX: L03.119 Cellulitis of unspecified part of limb (principal); E11.9 Type 2 diabetes mellitus without complications; F11.10 Opioid abuse, uncomplicated; I10 Essential (primary) hypertension; Z87.891 Personal history of nicotine dependence; Z91.013 Allergy to seafood
CPT/HCPCS: 36415; 73630-TC-LT; 73630-TC-RT-FY; 80053; 82962; 83880; 84484; 85025; 85651; 86140; 93005; 93010; 93970-TC; 96365; 96372; 96375; 99285-25; G0378; J1644

== ENCOUNTER 2023-04-19 08:14 | Emergency (ER) | payer OTHER ==
[2023-04-19 08:35] VITALS: BMI 32.5
[2023-04-19] MEDS ORDERED: ONDANSETRON 4 MG/2 ML VIAL ONE (09:22)
[2023-04-19] MEDS ORDERED: FAMOTIDINE 20 MG/50 ML IVPB 20 MG/50 ML MG IVPB ONE (09:22)
[2023-04-19] MEDS ORDERED: ACETAMINOPHEN INJECTION 100 ML IVPB ONE (09:22)
[2023-04-19] MEDS: SODIUM CHLORIDE 0.9% 500 ML INFUS.BAG IV ONE (09:48)
[2023-04-19] MEDS: ACETAMINOPHEN 1000 MG/100 ML BAG IVPB ONE (09:48)
[2023-04-19] MEDS: ONDANSETRON 4 MG/2 ML VIAL IVPUSH ONE (09:48)
[2023-04-19] MEDS: FAMOTIDINE 20 MG/50 ML IVPB 20 MG/50 ML MG IVPB ONE (09:48)
[2023-04-19 09:57] VITALS: BP 128/69; PULSE 86; RESP 20; TEMP 98.4
[2023-04-19 09:57] LABS: BASO % 0.7 % (0-2.0); HEMATOCRIT 40.5 % (35.4-49); HEMOGLOBIN 13.7 GM/dL (11.7-16.9); LYMPH % 9.4 % (8-40); MCH 29.1 pg (25.7-33.7); MCHC 33.9 g/dl (32.0-35.9); MEAN CELL VOLUME 85.9 fl (80-96); MEAN PLT VOLUME 8.1 fl (7.5-11.1); MONO % 6.6 % (3.8-10.2); NEUT % 82.3 % (42.8-82.8); PLATELET COUNT 261 10^3/uL (134-434); RBC 4.72 M/mm3 (4.00-5.60); RDW 13.9 % (11.9-15.9); WHITE BLOOD COUNT 12.8 K/mm3 (4.0-10.0)
[2023-04-19 10:15] LABS: POTASSIUM 3.8 mmol/L (3.5-5.1)
[2023-04-19 10:17] LABS: PROTHROMBIN TIME (PATIENT) 11.6 SEC (9.7-13.0)
[2023-04-19 10:18] LABS: ALBUMIN 3.5 g/dl (3.4-5.0); BLOOD UREA NITROGEN 8.1 mg/dL (7-18); CALCIUM 8.9 mg/dL (8.5-10.1); MAGNESIUM 2.1 mg/dL (1.8-2.4)
[2023-04-19 10:19] LABS: ACTIVATED PTT 32.5 SECONDS (25.2-36.5)
[2023-04-19 10:21] LABS: CREATININE 0.7 mg/dL (0.55-1.3)
[2023-04-19 10:22] LABS: EPI CELLS 19 /uL (0-25.1); HYALINE CASTS 1 /uL (0-3.1); PH,URINE 7.5 (5.0-8.0); URINE APPEARANCE CLEAR; URINE BACTERIA 2 /uL (0-1359); URINE BILIRUBIN NEGATIVE (NEGATIVE); URINE COLOR YELLOW; URINE GLUCOSE (UA) NEGATIVE (NEGATIVE); URINE KETONE NEGATIVE (NEGATIVE); URINE LEUK ESTERASE NEGATIVE (NEGATIVE); URINE NITRITE NEGATIVE (NEGATIVE); URINE PROTEIN 2+ (NEGATIVE); URINE RBC 13 /uL (0-23.9); URINE WBC 6 /uL (0-25.8)
[2023-04-19 10:23] LABS: BILIRUBIN,TOTAL 0.4 mg/dL (0.2-1); TOT PROT 7.6 g/dl (6.4-8.2)
[2023-04-19 10:24] LABS: LACTIC ACID 2.1 mmol/L (0.4-2.0)
[2023-04-19] MEDS ORDERED: KETOROLAC TROMETHAMINE 15 MG/ML VIAL ONE (11:39)
[2023-04-19] MEDS: KETOROLAC TROMETHAMINE 15 MG/ML VIAL IVPUSH ONE (11:42)
[2023-04-19] MEDS ORDERED: METOCLOPRAMIDE HCL INJECTION 10 MG/2 ML VIAL ONE (12:58)
[2023-04-19] MEDS: LACTATED RINGERS SOLUTION 1000 ML INFUS.BAG IV ONE (13:09)
[2023-04-19] MEDS: METOCLOPRAMIDE HCL INJECTION 10 MG/2 ML VIAL IVPB ONE (13:09)
== END 2023-04-19 14:19 | disposition home or self-care (01) ==
LOC: JER 08:14
PROC: 3E033GC Introduction of Other Therapeutic Substance into Peripheral Vein, Percutaneous Approach (ICD-10-PCS; principal; 2023-04-19)
PROC: 3E033GC Introduction of Other Therapeutic Substance into Peripheral Vein, Percutaneous Approach (ICD-10-PCS; 2023-04-19)
PROC: 3E033GC Introduction of Other Therapeutic Substance into Peripheral Vein, Percutaneous Approach (ICD-10-PCS; 2023-04-19)
PROC: 3E033GC Introduction of Other Therapeutic Substance into Peripheral Vein, Percutaneous Approach (ICD-10-PCS; 2023-04-19)
PROC: 3E033GC Introduction of Other Therapeutic Substance into Peripheral Vein, Percutaneous Approach (ICD-10-PCS; 2023-04-19)
PROC: 3E033GC Introduction of Other Therapeutic Substance into Peripheral Vein, Percutaneous Approach (ICD-10-PCS; 2023-04-19)
DX: R11.2 Nausea with vomiting, unspecified (principal); R10.33 Periumbilical pain; Z20.822 Contact with and (suspected) exposure to COVID-19
CPT/HCPCS: 0241U-QW; 36415; 74177-TC; 80053; 81003; 82962; 83605; 83690; 83735; 85025; 85610; 85730; 86850; 86900; 86901; 87086; 93005; 93010; 99285-25; J0131; Q9967

== ENCOUNTER 2023-05-10 09:53 | Emergency (ER) | payer OTHER ==
[2023-05-10 09:58] VITALS: RESP 18; TEMP 97.4; BMI 38.4
[2023-05-10 11:06] LABS: VENOUS BASE EXCESS 0.7 mmol/L (-2-2); VENOUS O2 SATURATION 72.3 % (70-80); VENOUS PCO2 49.1 mmHg (38-52); VENOUS PH 7.357 (7.310-7.410)
[2023-05-10] MEDS ORDERED: ONDANSETRON 4 MG/2 ML VIAL ONE (11:07)
[2023-05-10] MEDS ORDERED: FAMOTIDINE 20 MG/50 ML IVPB 20 MG/50 ML MG IVPB ONE (11:07)
[2023-05-10] MEDS: ONDANSETRON 4 MG/2 ML VIAL IVPUSH ONE (11:10)
[2023-05-10 11:12] LABS: BASO % 0.7 % (0-2.0); HEMATOCRIT 40.8 % (35.4-49); HEMOGLOBIN 13.5 GM/dL (11.7-16.9); LYMPH % 12.3 % (8-40); MCH 28.8 pg (25.7-33.7); MEAN CELL VOLUME 87.2 fl (80-96); MEAN PLT VOLUME 8.5 fl (7.5-11.1); MONO % 6.6 % (3.8-10.2); NEUT % 78.4 % (42.8-82.8); PLATELET COUNT 301 10^3/uL (134-434); RBC 4.68 M/mm3 (4.00-5.60); RDW 13.8 % (11.9-15.9); WHITE BLOOD COUNT 10.6 K/mm3 (4.0-10.0)
[2023-05-10] MEDS: FAMOTIDINE 20 MG/50 ML IVPB 20 MG/50 ML MG IVPB ONE (11:13)
[2023-05-10 11:34] LABS: CHLORIDE 104 mmol/L (98-107); SODIUM 135 mmol/L (136-145)
[2023-05-10 11:36] LABS: ALBUMIN 3.1 g/dl (3.4-5.0); BLOOD UREA NITROGEN 6.8 mg/dL (7-18); CALCIUM 8.8 mg/dL (8.5-10.1); CO2 29 mmol/L (21-32); GLUCOSE,RANDOM 197 mg/dL (74-106)
[2023-05-10 11:40] LABS: CREATININE 0.7 mg/dL (0.55-1.3); SGOT/AST 74 U/L (15-37)
[2023-05-10 11:41] LABS: BILIRUBIN,TOTAL 0.5 mg/dL (0.2-1); TOT PROT 7.6 g/dl (6.4-8.2)
[2023-05-10 11:42] LABS: ALK PHOS 131 U/L (45-117)
[2023-05-10 11:58] LABS: ANION GAP 2 mmol/L (4-13); LACTIC ACID 2.5 mmol/L (0.4-2.0); POTASSIUM 6.5 mmol/L (3.5-5.1); SGPT/ALT 43 U/L (13-61)
[2023-05-10] MEDS: SODIUM CHLORIDE 0.9% 500 ML INFUS.BAG IV ONE (12:55)
[2023-05-10 18:16] VITALS: BP 159/92; PULSE 62
[2023-05-10 18:38] LABS: POTASSIUM 3.9 mmol/L (3.5-5.1)
[2023-05-10 18:41] LABS: BLOOD UREA NITROGEN 4.7 mg/dL (7-18)
[2023-05-10 18:44] LABS: CREATININE 0.6 mg/dL (0.55-1.3)
== END 2023-05-10 19:02 | disposition home or self-care (01) ==
LOC: JER 09:53
PROC: 3E033GC Introduction of Other Therapeutic Substance into Peripheral Vein, Percutaneous Approach (ICD-10-PCS; principal; 2023-05-10)
PROC: 3E033GC Introduction of Other Therapeutic Substance into Peripheral Vein, Percutaneous Approach (ICD-10-PCS; 2023-05-10)
DX: R11.2 Nausea with vomiting, unspecified (principal); R10.30 Lower abdominal pain, unspecified
CPT/HCPCS: 36415; 70450-TC; 71045-TC-FY; 74177-TC; 76705-TC; 80048; 80053; 80307; 82010; 82803; 82962; 83605; 83690; 84484; 85025; 93005; 93010; 99285-25; Q9967

== ENCOUNTER 2023-06-29 08:38 | Emergency (ER) | payer OTHER ==
[2023-06-29 09:02] VITALS: BMI 34.7
[2023-06-29 09:03] VITALS: TEMP 98.2
[2023-06-29 09:56] LABS: VENOUS BASE EXCESS 1.6 mmol/L (-2-2); VENOUS PCO2 45.5 mmHg (38-52); VENOUS PH 7.392 (7.310-7.410)
[2023-06-29] MEDS ORDERED: ONDANSETRON 4 MG/2 ML VIAL ONE (09:59)
[2023-06-29 10:01] LABS: HEMATOCRIT 42.1 % (35.4-49); HEMOGLOBIN 14.1 GM/dL (11.7-16.9); MCH 28.5 pg (25.7-33.7); MCHC 33.4 g/dl (32.0-35.9); MEAN CELL VOLUME 85.2 fl (80-96); MEAN PLT VOLUME 8.3 fl (7.5-11.1); PLATELET COUNT 288 10^3/uL (134-434); RBC 4.95 M/mm3 (4.00-5.60); RDW 13.8 % (11.9-15.9); WHITE BLOOD COUNT 12.6 K/mm3 (4.0-10.0)
[2023-06-29 10:07] LABS: INR 0.91 (0.83-1.09); PROTHROMBIN TIME (PATIENT) 10.3 SEC (9.7-13.0)
[2023-06-29] MEDS: SODIUM CHLORIDE 0.9% 1000 ML INFUS.BAG IV ONE (10:07)
[2023-06-29] MEDS: ONDANSETRON 4 MG/2 ML VIAL IVPUSH ONE (10:07)
[2023-06-29 10:10] LABS: ACTIVATED PTT 33.3 SECONDS (25.2-36.5)
[2023-06-29 10:19] LABS: POTASSIUM 4.3 mmol/L (3.5-5.1)
[2023-06-29 10:22] LABS: ALBUMIN 3.5 g/dl (3.4-5.0)
[2023-06-29 10:23] LABS: BLOOD UREA NITROGEN 5.7 mg/dL (7-18); MAGNESIUM 2.1 mg/dL (1.8-2.4)
[2023-06-29 10:25] LABS: CREATININE 0.8 mg/dL (0.55-1.3)
[2023-06-29 10:27] LABS: BILIRUBIN,TOTAL 0.4 mg/dL (0.2-1); TOT PROT 7.7 g/dl (6.4-8.2)
[2023-06-29 10:36] LABS: ANISOCYTOSIS 0; MACROCYTOSIS 0
[2023-06-29] MEDS ORDERED: METOCLOPRAMIDE HCL INJECTION 10 MG/2 ML VIAL ONE (11:47)
[2023-06-29] MEDS: METOCLOPRAMIDE HCL INJECTION 10 MG/2 ML VIAL IVPB ONE (11:50)
[2023-06-29 12:02] LABS: COCAINE, UR NEGATIVE (NEGATIVE); URINE AMPHETAMINES NEGATIVE (NEGATIVE)
[2023-06-29 12:03] LABS: OPIATES, URI NEGATIVE (NEGATIVE); PHENCYCLIDINE,URINE NEGATIVE (NEGATIVE); URINE BARBITURATES NEGATIVE (NEGATIVE); URINE BENZODIAZEPINES NEGATIVE (NEGATIVE)
[2023-06-29 12:04] LABS: METHADONE, UR POSITIVE (NEGATIVE)
[2023-06-29 12:25] VITALS: BP 135/79; PULSE 73; RESP 18
== END 2023-06-29 13:07 | disposition home or self-care (01) ==
LOC: JER 08:38
PROC: 3E030GC Introduction of Other Therapeutic Substance into Peripheral Vein, Open Approach (ICD-10-PCS; principal; 2023-06-29)
PROC: 3E030GC Introduction of Other Therapeutic Substance into Peripheral Vein, Open Approach (ICD-10-PCS; 2023-06-29)
DX: K52.9 Noninfective gastroenteritis and colitis, unspecified (principal); R11.2 Nausea with vomiting, unspecified; Z20.822 Contact with and (suspected) exposure to COVID-19
CPT/HCPCS: 0241U-QW; 36415; 70450-TC; 80053; 80307; 82010; 82803; 83735; 84484; 85025; 85610; 85730; 86850; 86900; 86901; 93005; 93010; 99285-25

== ENCOUNTER 2023-08-10 08:07 | Emergency (ER) | payer OTHER ==
[2023-08-10 08:25] VITALS: RESP 18; TEMP 98; BMI 32.5
[2023-08-10] MEDS: SODIUM CHLORIDE 0.9% 500 ML INFUS.BAG IV ONE (10:53)
[2023-08-10 10:58] LABS: BASO % 0.6 % (0-2.0); EOS % 0.8 % (0-4.5); HEMOGLOBIN 14.9 GM/dL (11.7-16.9); LYMPH % 14.1 % (8-40); MCH 29.2 pg (25.7-33.7); MCHC 34.5 g/dl (32.0-35.9); MEAN CELL VOLUME 84.7 fl (80-96); MEAN PLT VOLUME 8.7 fl (7.5-11.1); MONO % 6.1 % (3.8-10.2); NEUT % 78.4 % (42.8-82.8); PLATELET COUNT 273 10^3/uL (134-434); RBC 5.08 M/mm3 (4.00-5.60); RDW 14.1 % (11.9-15.9); WHITE BLOOD COUNT 12.2 K/mm3 (4.0-10.0)
[2023-08-10] MEDS ORDERED: SODIUM CHLORIDE 0.9% 500 ML INFUS.BAG IV ONE (11:33)
[2023-08-10 11:34] LABS: POTASSIUM 4.6 mmol/L (3.5-5.1)
[2023-08-10] MEDS ORDERED: MAG HYDROX/AL HYDROX/SIMETH 30 ML UNIT-DOSE CUP PO ONE (11:34)
[2023-08-10 11:36] LABS: ALBUMIN 3.8 g/dl (3.4-5.0); CALCIUM 9.4 mg/dL (8.5-10.1)
[2023-08-10 11:37] LABS: BLOOD UREA NITROGEN 7.2 mg/dL (7-18)
[2023-08-10 11:39] LABS: CREATININE 0.7 mg/dL (0.55-1.3)
[2023-08-10 11:41] LABS: BILIRUBIN,TOTAL 0.6 mg/dL (0.2-1)
[2023-08-10 13:18] VITALS: BP 141/88; PULSE 83
== END 2023-08-10 13:18 | disposition home or self-care (01) ==
LOC: JER 08:07
DX: E86.0 Dehydration (principal); R63.0 Anorexia; R11.10 Vomiting, unspecified
CPT/HCPCS: 36415; 80053; 82962; 85025; 99283-25

== ENCOUNTER 2023-11-14 08:32 | Emergency (ER) | payer OTHER ==
[2023-11-14 08:41] VITALS: RESP 20; BMI 29.8
[2023-11-14] MEDS ORDERED: ONDANSETRON 4 MG/2 ML VIAL ONE (09:13)
[2023-11-14] MEDS ORDERED: FAMOTIDINE 20 MG/50 ML IVPB 20 MG/50 ML MG IVPB ONE (09:14)
[2023-11-14] MEDS ORDERED: FAMOTIDINE 10 MG/ML VIAL IVPB ONE (09:14)
[2023-11-14] MEDS: ONDANSETRON 4 MG/2 ML VIAL IVPUSH ONE (09:39)
[2023-11-14] MEDS: LACTATED RINGERS SOLUTION 1000 ML INFUS.BAG IV ONE (09:39)
[2023-11-14] MEDS: FAMOTIDINE 20 MG/50 ML IVPB 20 MG/50 ML MG IVPB ONE (09:39)
[2023-11-14 09:43] LABS: BASO % 0.5 % (0-2.0); EOS % 1.2 % (0-4.5); HEMATOCRIT 38.7 % (35.4-49); LYMPH % 9.9 % (8-40); MCH 29.2 pg (25.7-33.7); MCHC 33.5 g/dl (32.0-35.9); MEAN CELL VOLUME 86.9 fl (80-96); MEAN PLT VOLUME 8.1 fl (7.5-11.1); MONO % 6.4 % (3.8-10.2); PLATELET COUNT 228 10^3/uL (134-434); RBC 4.46 M/mm3 (4.00-5.60); RDW 14.1 % (11.9-15.9); WHITE BLOOD COUNT 12.8 K/mm3 (4.0-10.0)
[2023-11-14] MEDS ORDERED: MAG HYDROX/AL HYDROX/SIMETH 30 ML UNIT-DOSE CUP ONE (10:04)
[2023-11-14] MEDS: MAG HYDROX/AL HYDROX/SIMETH -MYLANTA- ORAL SUSPENSION PO ONE (10:08)
[2023-11-14 10:17] LABS: POTASSIUM 4.3 mmol/L (3.5-5.1)
[2023-11-14 10:19] LABS: MAGNESIUM 1.7 mg/dL (1.8-2.4)
[2023-11-14 10:20] LABS: ALBUMIN 3.3 g/dl (3.4-5.0); BLOOD UREA NITROGEN 6.8 mg/dL (7-18); CALCIUM 9.8 mg/dL (8.5-10.1)
[2023-11-14 10:23] LABS: CREATININE 0.7 mg/dL (0.55-1.3)
[2023-11-14 10:24] LABS: TOT PROT 6.8 g/dl (6.4-8.2)
[2023-11-14 10:25] LABS: BILIRUBIN,TOTAL 0.4 mg/dL (0.2-1)
[2023-11-14 10:47] LABS: VENOUS BASE EXCESS 1.4 mmol/L (-2-2); VENOUS O2 SATURATION 64.2 % (70-80); VENOUS PCO2 44.1 mmHg (38-52); VENOUS PH 7.398 (7.310-7.410)
[2023-11-14 11:29] LABS: URINE APPEARANCE CLEAR; URINE BILIRUBIN NEGATIVE (NEGATIVE); URINE COLOR YELLOW; URINE GLUCOSE (UA) NEGATIVE (NEGATIVE); URINE KETONE NEGATIVE (NEGATIVE); URINE LEUK ESTERASE NEGATIVE (NEGATIVE); URINE NITRITE NEGATIVE (NEGATIVE); URINE PROTEIN NEGATIVE (NEGATIVE); URINE UROBILINOGEN 0.2 mg/dL (0.2-1.0)
[2023-11-14 12:02] LABS: HIV INTERPRETATION NEGATIVE (NEGATIVE)
[2023-11-14 14:30] VITALS: BP 170/86; PULSE 73; TEMP 98.4
[2023-11-14] MEDS ORDERED: ACETAMINOPHEN 325 MG TABLET (FP) ONE (14:30)
[2023-11-14] MEDS: ACETAMINOPHEN 500 MG TABLET (FP) PO ONE (14:38)
== END 2023-11-14 14:35 | disposition home or self-care (01) ==
LOC: JER 08:32
PROC: 3E033GC Introduction of Other Therapeutic Substance into Peripheral Vein, Percutaneous Approach (ICD-10-PCS; principal; 2023-11-14)
PROC: 3E033GC Introduction of Other Therapeutic Substance into Peripheral Vein, Percutaneous Approach (ICD-10-PCS; 2023-11-14)
DX: R11.2 Nausea with vomiting, unspecified (principal); R10.13 Epigastric pain
CPT/HCPCS: 36415; 71045-TC-FY; 74177-TC; 76705-TC; 80053; 81003; 82010; 82803; 82962; 83690; 83735; 84100; 84484; 85025; 86803; 87086; 87389; 93005; 93010; 99285-25

== ENCOUNTER 2023-12-27 06:56 | Emergency (ER) | payer OTHER ==
[2023-12-27 07:11] VITALS: PULSE 85; RESP 16; TEMP 97.8; BMI 27.1
[2023-12-27] MEDS ORDERED: ACETAMINOPHEN INJECTION 100 ML ONE (07:41)
[2023-12-27] MEDS ORDERED: ONDANSETRON 4 MG/2 ML VIAL ONE (07:41)
[2023-12-27] MEDS ORDERED: FAMOTIDINE 20 MG/50 ML IVPB 20 MG/50 ML MG IVPB ONE (07:42)
[2023-12-27] MEDS: ACETAMINOPHEN 1000 MG/100 ML BAG IVPB ONE (08:26)
[2023-12-27] MEDS: FAMOTIDINE 20 MG/50 ML IVPB 20 MG/50 ML MG IVPB ONE (08:27)
[2023-12-27] MEDS: ONDANSETRON 4 MG/2 ML VIAL IVPUSH ONE (08:27)
[2023-12-27 08:30] LABS: VENOUS BASE EXCESS -0.9 mmol/L (-2-2); VENOUS O2 SATURATION 76.5 % (70-80); VENOUS PCO2 48.2 mmHg (38-52); VENOUS PH 7.34 (7.310-7.410)
[2023-12-27 08:39] LABS: BASO % 0.7 % (0-2.0); EOS % 2.1 % (0-4.5); HEMATOCRIT 39.8 % (35.4-49); HEMOGLOBIN 13.1 GM/dL (11.7-16.9); LYMPH % 9.9 % (8-40); MCH 28.8 pg (25.7-33.7); MEAN CELL VOLUME 87.3 fl (80-96); MEAN PLT VOLUME 8.5 fl (7.5-11.1); MONO % 7.7 % (3.8-10.2); NEUT % 79.6 % (42.8-82.8); PLATELET COUNT 235 10^3/uL (134-434); RBC 4.56 M/mm3 (4.00-5.60); RDW 14.1 % (11.9-15.9); WHITE BLOOD COUNT 11.5 K/mm3 (4.0-10.0)
[2023-12-27 08:47] LABS: INR 0.9 (0.83-1.09); PROTHROMBIN TIME (PATIENT) 10.4 SEC (9.7-13.0)
[2023-12-27 08:50] LABS: ACTIVATED PTT 34.9 SECONDS (25.2-36.5)
[2023-12-27 08:59] LABS: POTASSIUM 4.5 mmol/L (3.5-5.1)
[2023-12-27 09:00] LABS: ALBUMIN 3.5 g/dl (3.4-5.0); BLOOD UREA NITROGEN 9.8 mg/dL (7-18); CALCIUM 8.7 mg/dL (8.5-10.1); MAGNESIUM 1.9 mg/dL (1.8-2.4)
[2023-12-27 09:03] LABS: CREATININE 0.8 mg/dL (0.55-1.3)
[2023-12-27 09:05] LABS: BILIRUBIN,TOTAL 0.3 mg/dL (0.2-1); TOT PROT 7.2 g/dl (6.4-8.2)
[2023-12-27 10:29] VITALS: BP 149/97
== END 2023-12-27 11:41 | disposition home or self-care (01) ==
LOC: JER 06:56
PROC: 2W3RX1Z Immobilization of Left Lower Leg using Splint (ICD-10-PCS; principal; 2023-12-27)
PROC: 3E033GC Introduction of Other Therapeutic Substance into Peripheral Vein, Percutaneous Approach (ICD-10-PCS; 2023-12-27)
PROC: 3E033NZ Introduction of Analgesics, Hypnotics, Sedatives into Peripheral Vein, Percutaneous Approach (ICD-10-PCS; 2023-12-27)
PROC: 3E033GC Introduction of Other Therapeutic Substance into Peripheral Vein, Percutaneous Approach (ICD-10-PCS; 2023-12-27)
DX: S82.402A Unspecified fracture of shaft of left fibula, initial encounter for closed fracture (principal); R11.2 Nausea with vomiting, unspecified; R19.7 Diarrhea, unspecified; R10.13 Epigastric pain; R10.33 Periumbilical pain; R05.9 Cough, unspecified; R53.1 Weakness; V19.9XXA Pedal cyclist (driver) (passenger) injured in unspecified traffic accident, initial encounter; Z20.822 Contact with and (suspected) exposure to COVID-19
CPT/HCPCS: 0241U-QW; 36415; 71045-TC-FY; 73562-TC-LT-FY; 73590-TC-LT-FY; 73610-TC-LT-FY; 73630-TC-LT; 80053; 82010; 82803; 83690; 83735; 84484; 85025; 85610; 85730; 93005; 93010; 99285-25; J0131

== ENCOUNTER 2024-05-03 04:47 | Observation (INO) | payer OTHER ==
[2024-05-03] MEDS: LACTATED RINGERS SOLUTION 1000 ML INFUS.BAG IV ONE ×2 (05:49→08:45)
[2024-05-03 06:22] LABS: BASO % 0.8 % (0-2.0); EOS % 1.7 % (0-4.5); HEMATOCRIT 35.6 % (35.4-49); HEMOGLOBIN 11.3 GM/dL (11.7-16.9); LYMPH % 13.4 % (8-40); MCH 25.3 pg (25.7-33.7); MCHC 31.8 g/dl (32.0-35.9); MEAN CELL VOLUME 79.7 fl (80-96); MEAN PLT VOLUME 8.9 fl (7.5-11.1); MONO % 7.3 % (3.8-10.2); NEUT % 76.8 % (42.8-82.8); PLATELET COUNT 269 10^3/uL (134-434); RBC 4.46 M/mm3 (4.00-5.60); RDW 14.8 % (11.9-15.9); WHITE BLOOD COUNT 9.9 K/mm3 (4.0-10.0)
[2024-05-03 06:43] LABS: CALCIUM 9.2 mg/dL (8.5-10.1)
[2024-05-03 06:44] LABS: ALBUMIN 3.5 g/dl (3.4-5.0); BLOOD UREA NITROGEN 9.1 mg/dL (7-18); MAGNESIUM 1.7 mg/dL (1.8-2.4)
[2024-05-03 06:45] LABS: VENOUS BASE EXCESS -1.1 mmol/L (-2-2); VENOUS O2 SATURATION 94.9 % (70-80); VENOUS PCO2 38.4 mmHg (38-52); VENOUS PH 7.403 (7.310-7.410)
[2024-05-03 06:48] LABS: BILIRUBIN,TOTAL 0.4 mg/dL (0.2-1); CREATININE 0.7 mg/dL (0.55-1.3); TOT PROT 7.7 g/dl (6.4-8.2)
[2024-05-03] MEDS ORDERED: ONDANSETRON 4 MG/2 ML VIAL ONE ×2 (06:48→08:44)
[2024-05-03] MEDS ORDERED: ACETAMINOPHEN INJECTION 100 ML ONE (06:48)
[2024-05-03] MEDS: ONDANSETRON 4 MG/2 ML VIAL IVPUSH ONE ×2 (06:55→08:45)
[2024-05-03] MEDS: ACETAMINOPHEN 1000 MG/100 ML BAG IVPB ONE (06:56)
[2024-05-03] MEDS ORDERED: LACTATED RINGERS SOLUTION 1,000 ML/1,000 ML INFUS.BAG IV SCH (09:00)
[2024-05-03] MEDS: FAMOTIDINE 20 MG/50 ML IVPB 20 MG/50 ML MG IVPB ONE (09:15)
[2024-05-03] MEDS: METOCLOPRAMIDE HCL INJECTION 10 MG/2 ML VIAL IVPUSH ONE (09:15)
[2024-05-03] MEDS ORDERED: METOCLOPRAMIDE HCL INJECTION 10 MG/2 ML VIAL ONE ×2 (09:17→14:57)
[2024-05-03] MEDS ORDERED: FAMOTIDINE 20 MG/50 ML IVPB 20 MG/50 ML MG IVPB ONE (09:18)
[2024-05-03] MEDS ORDERED: INSULIN REGULAR HUMAN 100 UNITS/ML *VIAL ONE (09:21)
[2024-05-03] MEDS: INSULIN REGULAR HUMAN 100 UNITS/ML *VIAL SQ ONE (09:40)
[2024-05-03] MEDS ORDERED: methaDONE HCL 40 MG DISPERSABLE TABLET ONE (10:06)
[2024-05-03] MEDS: methaDONE 40 MG, methaDONE 20 MG PO ONE (10:15)
[2024-05-03] MEDS: METOCLOPRAMIDE HCL INJECTION 10 MG/2 ML VIAL IVPUSH PRN (15:02)
[2024-05-03] MEDS ORDERED: POLYETHYLENE GLYCOL (HEALTHYLAX) 3350 17 GM PACKET PO PRN (15:27)
[2024-05-03] MEDS ORDERED: ACETAMINOPHEN 500 MG TABLET (FP) PO PRN (15:29)
[2024-05-03] MEDS: LACTATED RINGERS SOLUTION 1,000 ML/1,000 ML INFUS.BAG IV SCH (17:16)
[2024-05-03] MEDS: ACETAMINOPHEN 1000 MG/100 ML BAG IVPB PRN (17:16)
[2024-05-03] MEDS: INSULIN (LEVEMIR) 100 UNITS/ML UNITS SQ SCH (17:19)
[2024-05-03] MEDS: INSULIN ASPART SLIDING SCALE (NOVOLOG) 1 VIAL SQ SCH (17:20)
[2024-05-03 17:51] VITALS: BMI 35.4
[2024-05-03] MEDS ORDERED: PANTOPRAZOLE 40 MG TABLET PO SCH (22:00)
[2024-05-03 22:02] VITALS: RESP 20
[2024-05-03] MEDS: ATORVASTATIN CA 10 MG TABLET (FP) PO SCH (22:13)
[2024-05-03] MEDS: PANTOPRAZOLE SODIUM 40 MG VIAL IVPUSH SCH (22:13)
[2024-05-04] MEDS ORDERED: methaDONE HCL 40 MG DISPERSABLE TABLET PO SCH (06:00)
[2024-05-04] MEDS: methaDONE 40 MG, methaDONE 20 MG PO SCH (09:45)
[2024-05-04] MEDS: amLODIPine BESYLATE 5 MG TABLET (FP) PO SCH (09:46)
[2024-05-04] MEDS: ENOXAPARIN NA (PORCINE) 40 MG/0.4 ML DISP.SYRIN SQ SCH (09:46)
[2024-05-04] MEDS ORDERED: PANTOPRAZOLE 40 MG TABLET PO SCH (10:00)
[2024-05-04] MEDS: POLYETHYLENE GLYCOL (HEALTHYLAX) 3350 17 GM PACKET PO SCH (10:07)
[2024-05-04 12:32] LABS: BASO % 0.4 % (0-2.0); HEMATOCRIT 35.8 % (35.4-49); HEMOGLOBIN 11.5 GM/dL (11.7-16.9); LYMPH % 12.9 % (8-40); MCH 25.2 pg (25.7-33.7); MCHC 32.2 g/dl (32.0-35.9); MEAN CELL VOLUME 78.5 fl (80-96); MEAN PLT VOLUME 9.2 fl (7.5-11.1); MONO % 9.2 % (3.8-10.2); NEUT % 77.5 % (42.8-82.8); PLATELET COUNT 284 10^3/uL (134-434); RBC 4.56 M/mm3 (4.00-5.60); WHITE BLOOD COUNT 11.5 K/mm3 (4.0-10.0)
[2024-05-04 12:42] LABS: POTASSIUM 4.2 mmol/L (3.5-5.1)
[2024-05-04 12:47] LABS: CALCIUM 8.8 mg/dL (8.5-10.1)
[2024-05-04 12:48] LABS: ALBUMIN 3.1 g/dl (3.4-5.0); BLOOD UREA NITROGEN 9.4 mg/dL (7-18)
[2024-05-04 12:49] LABS: MAGNESIUM 1.9 mg/dL (1.8-2.4)
[2024-05-04 12:52] LABS: CREATININE 0.7 mg/dL (0.55-1.3)
[2024-05-04 12:53] LABS: BILIRUBIN,TOTAL 0.7 mg/dL (0.2-1); TOT PROT 7.2 g/dl (6.4-8.2)
[2024-05-04] MEDS: SODIUM CHLORIDE 1,000 ML IV SCH (14:30)
[2024-05-04 14:37] VITALS: BP 133/81; PULSE 84; TEMP 98.4
== END 2024-05-04 16:20 | disposition home or self-care (01) ==
LOC: JER 04:47 → UNDOADMOB 11:38 → JERBED 11:38 → INTOOBSV 13:36 → OBSVTOIN 13:36 → JERBED 15:26 → J7W 15:26 → JERBED 05-04 09:46
PROVIDERS: ADMIT Internal Medicine
PROC: 3E033GC Introduction of Other Therapeutic Substance into Peripheral Vein, Percutaneous Approach (ICD-10-PCS; principal; 2024-05-04)
PROC: 3E013VG Introduction of Insulin into Subcutaneous Tissue, Percutaneous Approach (ICD-10-PCS; 2024-05-04)
PROC: 3E0337Z Introduction of Electrolytic and Water Balance Substance into Peripheral Vein, Percutaneous Approach (ICD-10-PCS; 2024-05-04)
DX: R11.2 Nausea with vomiting, unspecified (principal); E10.9 Type 1 diabetes mellitus without complications; I10 Essential (primary) hypertension; F11.10 Opioid abuse, uncomplicated; F17.200 Nicotine dependence, unspecified, uncomplicated; F10.99 Alcohol use, unspecified with unspecified alcohol-induced disorder; Z91.013 Allergy to seafood
CPT/HCPCS: 0241U-QW; 36415; 71046-TC-FY; 80053; 82010; 82728; 82803; 82962; 82977; 83036; 83540; 83550; 83605; 83690; 83735; 84100; 85025; 93005; 93010; 96361; 96365; 96372; 96375; 96376; 99285-25; G0378; J0131